=== PATIENT | female | born 1930 | race Caucasian/White ===

== ENCOUNTER 2017-05-30 11:21 | Inpatient (IN) | payer MEDICARE ==
[~2017-05-30] VITALS: Ht 154.9 cm; Wt 57.7 kg
[2017-05-30] VITALS (11 sets, daily range): BP systolic 128–153; BP diastolic 69–79
[~2017-05-30 11:21] MED LIST: ALBU18HF2 INH; ALBU2.5V7 NEB; ALLO100T PO; AMLO10TA PO; AZO1OS EACHEYE; CARV3.12 PO; FLUT1AER IH; FURO-149 PO; GABA-532 PO; PANT-47 PO; POTA10TA19 PO; XAL0.005OS EACHEYE; [UNRECOGNIZED DRUG - CODE] PO
[2017-05-30 12:17] LABS: BASOPHILS % (AUTO) 0.6 % (0-1); EOSINOPHILS # (AUTO) 0.1 X10'3 (0-0.9); EOSINOPHILS % (AUTO) 2.7 % (0-6); LYMPHOCYTES # (AUTO) 0.7 X10'3 (1.1-4.8); LYMPHOCYTES % (AUTO) 17.8 % (21-51); MEAN CORPUSCULAR HEMOGLOBIN 30.4 PG (27.0-31.0); MEAN CORPUSCULAR HGB CONC 29.8 % (33.0-36.5); MEAN PLATELET VOLUME 7.4 FL (7.4-10.4); MONOCYTES # (AUTO) 0.5 X10'3 (0-0.9); MONOCYTES % (AUTO) 12.4 % (2-12); NEUTROPHILS # (AUTO) 2.7 X10'3 (1.8-7.7); NEUTROPHILS % (AUTO) 66.5 % (42-75); PLATELET COUNT 123 X10'3 (140-440); RED BLOOD COUNT 2.14 X10'6 (4.20-5.60); RED CELL DISTRIBUTION WIDTH 18.8 % (11.5-14.5); WHITE BLOOD COUNT 4.1 X10'3 (4.5-11.0)
[2017-05-30 12:29] LABS: PARTIAL THROMBOPLASTIN TIME 21 SECONDS (22-32)
[2017-05-30 12:32] LABS: ALANINE AMINOTRANSFERASE 36 U/L (12-78); ALBUMIN 2.4 G/DL (3.4-5.0); ALKALINE PHOSPHATASE 57 IU/L (46-116); ANION GAP 8 (8-16); ASPARTATE AMINO TRANSFERASE 22 U/L (10-37); BILIRUBIN,TOTAL 0.5 MG/DL (0.1-1.0); BLOOD UREA NITROGEN 55 MG/DL (7-18); CALCIUM 8.1 MG/DL (8.5-10.1); CHLORIDE 110 MMOL/L (99-107); GLUCOSE 232 MG/DL (70-104); POTASSIUM 3.8 MMOL/L (3.5-5.1); SODIUM 144 MMOL/L (135-145); TOTAL CARBON DIOXIDE 25.9 MMOL/L (24-32); TOTAL PROTEIN 4.8 G/DL (6.4-8.2); eGFR 21 ML/MIN
[2017-05-30 12:34] LABS: HEMATOCRIT 21.9 % (35.0-45.0); HEMOGLOBIN 6.5 g/dl (12.0-16.0)
[2017-05-30] MEDS ORDERED: pantoprazole IV 80 MG in normal saline 100ml IV soln 100 ML IV ONE ×4 (12:45)
[2017-05-30] MEDS ORDERED: pantoprazole 40MG/NS 100ML BAG 100 ML IV ONE (12:50)
[2017-05-30] MEDS ORDERED: pantoprazole 40 MG vial IV ONE (12:50)
[2017-05-30] MEDS: pantoprazole 40 MG vial IV SCH ×3 (13:10→20:00)
[2017-05-30 13:22] LABS: OCCULT BLOOD STOOL POSITIVE (Neg)
[2017-05-30] MEDS ORDERED: non-formulary drug (Albuterol Sulfate (Ventolin Hfa) 2 PUFFS) INH SCH (14:10)
[2017-05-30] MEDS ORDERED: albuterol 2.5 MG/3 ML nebule NEB PRN (14:10)
[2017-05-30] MEDS ORDERED: magnesium Cl slow-release 64mg tablet PO PRN (14:15)
[2017-05-30] MEDS ORDERED: acetaminophen 325mg tablet PO PRN ×2 (14:15)
[2017-05-30] MEDS ORDERED: HYDROcodone/acetaminophen 5mg/325mg tablet PO PRN (14:15)
[2017-05-30] MEDS ORDERED: ondansetron/PF 4mg/2ml inj IV PRN (14:15)
[2017-05-30] MEDS ORDERED: mag hydrox/Alum hydrox/simeth 30ml oral suspension PO PRN (14:15)
[2017-05-30] MEDS ORDERED: magnesium 4gm in 100ml NS 100 ML IV PRN (14:15)
[2017-05-30] MEDS ORDERED: magnesium hydroxide 30ml (MOM) UD suspension PO PRN (14:15)
[2017-05-30] MEDS ORDERED: HYDROcodone/acetaminophen 10/325mg tab PO PRN (14:15)
[2017-05-30] MEDS ORDERED: potassium Cl 40MEQ/NS 500ml 500 ML IV PRN ×2 (14:15)
[2017-05-30] MEDS ORDERED: potassium Cl 20 mEq SR tablet PO PRN ×2 (14:15)
[2017-05-30] MEDS ORDERED: magnesium 2GM in 50ml NS 50 ML IV PRN (14:15)
[2017-05-30] MEDS ORDERED: fentaNYL/PF 50MCG/1 ML 2ML syringe IV PRN ×2 (16:00→16:15)
[2017-05-30] MEDS ORDERED: LIDOcaine Viscous 15ml cup PO ONE ×2 (16:00→16:15)
[2017-05-30] MEDS ORDERED: simethicone 40mg/0.6ml oral drops 30ml MC ONE ×2 (16:00→16:15)
[2017-05-30] MEDS ORDERED: MIDAZolam 1mg/ml 10ml vial IV PRN ×2 (16:00→16:15)
[2017-05-30] MEDS ORDERED: normal saline 1000ml 1,000 ML IV SCH ×2 (16:00→16:13)
[2017-05-30] MEDS ORDERED: MIDAZolam 1mg/ml 10ml vial ONE (16:15)
[2017-05-30] MEDS ORDERED: fentaNYL/PF 50MCG/1 ML 2ML syringe ONE (16:15)
[2017-05-30] MEDS ORDERED: LIDOcaine Viscous 15ml cup ONE (16:15)
[2017-05-30] MEDS: carVEDilol 3.125mg tablet PO SCH (20:00)
[2017-05-30] MEDS ORDERED: temazepam 15mg capsule PO PRN (21:00)
[2017-05-30] MEDS ORDERED: furosemide 20 MG/2 ML vial IV ONE (21:00)
[2017-05-30] MEDS ORDERED: latanoprost 0.005% 2.5ml ophthalmic drops EACHEYE SCH (21:00)
[2017-05-31] MEDS ORDERED: furosemide 20 MG/2 ML vial IV ONE (00:30)
[2017-05-31 01:07] VITALS: BP 154/78
[2017-05-31 01:22] VITALS: BP 149/75
[2017-05-31 02:22] VITALS: BP 154/73
[2017-05-31 03:22] VITALS: BP 150/88
[2017-05-31] MEDS ORDERED: PRED5TAB PO (06:43)
[2017-05-31 06:52] LABS: ALANINE AMINOTRANSFERASE 34 U/L (12-78); ALBUMIN 2.4 G/DL (3.4-5.0); ALKALINE PHOSPHATASE 52 IU/L (46-116); ANION GAP 11 (8-16); ASPARTATE AMINO TRANSFERASE 24 U/L (10-37); BILIRUBIN,TOTAL 2.1 MG/DL (0.1-1.0); BLOOD UREA NITROGEN 46 MG/DL (7-18); BUN/CREATININE RATIO 24.2 (6.6-38.0); CALCIUM 8.4 MG/DL (8.5-10.1); CHLORIDE 113 MMOL/L (99-107); GLUCOSE 88 MG/DL (70-104); MAGNESIUM 2.2 MG/DL (1.5-2.4); POTASSIUM 3.4 MMOL/L (3.5-5.1); SODIUM 149 MMOL/L (135-145); TOTAL CARBON DIOXIDE 25.3 MMOL/L (24-32); TOTAL PROTEIN 4.8 G/DL (6.4-8.2); eGFR 25 ML/MIN
[2017-05-31] MEDS ORDERED: pantoprazole 40mg Tablet.DR PO SCH (08:00)
[2017-05-31] MEDS ORDERED: allopurinol 100mg tablet PO SCH (08:00)
[2017-05-31] MEDS ORDERED: gabapentin 300mg capsule PO SCH (08:00)
[2017-05-31] MEDS ORDERED: amLODIPine 5mg tablet PO SCH (08:00)
[2017-05-31] MEDS ORDERED: K and/or MAG REPLACEMENT MC SCH (08:00)
[2017-05-31 08:20] LABS: BASOPHILS % (AUTO) 0.5 % (0-1); EOSINOPHILS # (AUTO) 0.2 X10'3 (0-0.9); EOSINOPHILS % (AUTO) 3.1 % (0-6); HEMOGLOBIN 10.1 g/dl (12.0-16.0); LYMPHOCYTES # (AUTO) 1.1 X10'3 (1.1-4.8); LYMPHOCYTES % (AUTO) 18.8 % (21-51); MEAN CORPUSCULAR HEMOGLOBIN 30.9 PG (27.0-31.0); MEAN CORPUSCULAR HGB CONC 33.6 % (33.0-36.5); MEAN CORPUSCULAR VOLUME 91.8 FL (78-98); MEAN PLATELET VOLUME 7.5 FL (7.4-10.4); MONOCYTES # (AUTO) 0.8 X10'3 (0-0.9); MONOCYTES % (AUTO) 13.9 % (2-12); NEUTROPHILS # (AUTO) 3.8 X10'3 (1.8-7.7); NEUTROPHILS % (AUTO) 63.7 % (42-75); PLATELET COUNT 90 X10'3 (140-440); RED BLOOD COUNT 3.26 X10'6 (4.20-5.60); RED CELL DISTRIBUTION WIDTH 20.2 % (11.5-14.5); WHITE BLOOD COUNT 5.9 X10'3 (4.5-11.0)
[2017-05-31] MEDS: carVEDilol 3.125mg tablet PO SCH (08:24)
[2017-05-31] MEDS: pantoprazole 40 MG vial IV SCH (08:25)
[2017-05-31 10:05] VITALS: BP 154/83
[2017-05-31 11:00] VITALS: BP 132/71
[2017-05-31] MEDS ORDERED: PANT-47 PO (11:02)
== END 2017-05-31 17:06 | disposition home or self-care (01) | DRG 393 ==
LOC: ER 11:22 → ED HOLD 13:51 → EDBEDREQ 14:44 → SUR 3N 18:30
PROVIDERS: ADMIT Internal Medicine; ATTEND Internal Medicine
PROC: 0W3P8ZZ Control Bleeding in Gastrointestinal Tract, Via Natural or Artificial Opening Endoscopic (ICD-10-PCS; principal; 2017-05-30)
PROC: 0DB68ZX Excision of Stomach, Via Natural or Artificial Opening Endoscopic, Diagnostic (ICD-10-PCS; 2017-05-30)
PROC: 30233N1 Transfusion of Nonautologous Red Blood Cells into Peripheral Vein, Percutaneous Approach (ICD-10-PCS; 2017-05-30)
PROC: 30233N1 Transfusion of Nonautologous Red Blood Cells into Peripheral Vein, Percutaneous Approach (ICD-10-PCS; 2017-05-31)
DX: K31.7 Polyp of stomach and duodenum (principal); K31.811 Angiodysplasia of stomach and duodenum with bleeding; E11.22 Type 2 diabetes mellitus with diabetic chronic kidney disease; D64.9 Anemia, unspecified; N18.3 Chronic kidney disease, stage 3 (moderate); J44.9 Chronic obstructive pulmonary disease, unspecified; I12.9 Hypertensive chronic kidney disease with stage 1 through stage 4 chronic kidney disease, or unspecified chronic kidney disease; I25.10 Atherosclerotic heart disease of native coronary artery without angina pectoris; K21.9 Gastro-esophageal reflux disease without esophagitis; M1A.9XX0 Chronic gout, unspecified, without tophus (tophi); B19.20 Unspecified viral hepatitis C without hepatic coma; T39.015A Adverse effect of aspirin, initial encounter; I25.2 Old myocardial infarction; Z88.1 Allergy status to other antibiotic agents; Z88.5 Allergy status to narcotic agent; Z91.048 Other nonmedicinal substance allergy status; Z90.49 Acquired absence of other specified parts of digestive tract; Z95.1 Presence of aortocoronary bypass graft; Z86.73 Personal history of transient ischemic attack (TIA), and cerebral infarction without residual deficits; Y92.89 Other specified places as the place of occurrence of the external cause
CPT/HCPCS: 36415; 43251; 71045; 80053; 82272; 83735; 85025; 85610; 85730; 86870; 86885; 86900; 86901; 86902; 86905; 86920; 86922; 87070; 88305; 94640; 94760; 96365; 96375; 96376; 97116; 97161; 99285; A4620; C9113; G0500; J1940; J2250; J3010; J7030; P9016

== ENCOUNTER 2017-11-12 01:29 | Inpatient (IN) | payer MEDICARE ==
[~2017-11-12] VITALS: Ht 162.6 cm; Wt 58.0 kg
[~2017-11-12 01:29] MED LIST changes: -GABA-532 PO; +NITR100C6 PO
[2017-11-12] MEDS ORDERED: acetaminophen 325mg tablet PO ONE (01:40)
[2017-11-12] MEDS ORDERED: normal saline 1000ML IV soln IV ONE (01:45)
[2017-11-12] MEDS ORDERED: CefTRIAXone 2gm/D5W 50ml 50 ML IV ONE (01:45)
[2017-11-12 02:04] LABS: BASOPHILS % (AUTO) 0.1 % (0-1); EOSINOPHILS % (AUTO) 0.2 % (0-6); HEMATOCRIT 27.2 % (35.0-45.0); HEMOGLOBIN 8.6 g/dl (12.0-16.0); LYMPHOCYTES # (AUTO) 0.8 X10'3 (1.1-4.8); LYMPHOCYTES % (AUTO) 8.4 % (21-51); MEAN CORPUSCULAR HGB CONC 31.5 % (33.0-36.5); MEAN CORPUSCULAR VOLUME 92.2 FL (78-98); MEAN PLATELET VOLUME 7.9 FL (7.4-10.4); MONOCYTES # (AUTO) 0.8 X10'3 (0-0.9); MONOCYTES % (AUTO) 8.9 % (2-12); NEUTROPHILS # (AUTO) 7.5 X10'3 (1.8-7.7); NEUTROPHILS % (AUTO) 82.4 % (42-75); PLATELET COUNT 120 X10'3 (140-440); RED BLOOD COUNT 2.95 X10'6 (4.20-5.60); RED CELL DISTRIBUTION WIDTH 19.3 % (11.5-14.5); WHITE BLOOD COUNT 9.1 X10'3 (4.5-11.0)
[2017-11-12 02:19] LABS: ALANINE AMINOTRANSFERASE 33 U/L (12-78); ALKALINE PHOSPHATASE 94 IU/L (46-116); ANION GAP 12 (8-16); ASPARTATE AMINO TRANSFERASE 22 U/L (10-37); BILIRUBIN,TOTAL 0.5 MG/DL (0.1-1.0); BLOOD UREA NITROGEN 70 MG/DL (7-18); BUN/CREATININE RATIO 26.1 (6.6-38.0); CALCIUM 8.6 MG/DL (8.5-10.1); CHLORIDE 107 MMOL/L (99-107); CREATININE 2.68 MG/DL (0.40-0.90); GLUCOSE 151 MG/DL (70-104); POTASSIUM 3.9 MMOL/L (3.5-5.1); SODIUM 142 MMOL/L (135-145); TOTAL CARBON DIOXIDE 22.8 MMOL/L (24-32); TOTAL PROTEIN 5.9 G/DL (6.4-8.2); eGFR 17 ML/MIN
[2017-11-12 03:05] LABS: CLARITY,URINE CLEAR (Clear); COLOR,URINE YELLOW (Yellow); GLUCOSE, URINE NEGATIVE (Neg); KETONES,URINE NEGATIVE (Neg); NITRITES, URINE POSITIVE (Neg); OCCULT BLOOD,URINE NEGATIVE (Neg); PROTEIN,URINE NEGATIVE (Neg); UA COLLECTION TYPE STRAIGHT CATH; UROBILINOGEN,URINE 0.2 E.U/dL (0.2-1.0)
[2017-11-12 03:06] LABS: LEUKOCYTE ESTERASE ,URINE TRACE (Neg)
[2017-11-12 03:14] LABS: RBC,URINE NONE SEEN /HPF (0-2)
[2017-11-12 03:15] LABS: BACTERIA,URINE 2+ /HPF (Neg); SQUAMOUS EPITHELIAL CELL,UR NONE SEEN /LPF (FEW)
[2017-11-12] MEDS ORDERED: azithromycin 250mg tablet PO ONE (04:20)
[2017-11-12] MEDS ORDERED: mag hydrox/Alum hydrox/simeth 30ml oral suspension PO PRN (04:30)
[2017-11-12] MEDS ORDERED: acetaminophen 325mg tablet PO PRN (04:30)
[2017-11-12] MEDS ORDERED: ondansetron/PF 4mg/2ml inj IV PRN (04:30)
[2017-11-12] MEDS ORDERED: normal saline 1000ml 1,000 ML IV SCH (04:30)
[2017-11-12] MEDS ORDERED: magnesium hydroxide 30ml (MOM) UD suspension PO PRN (04:30)
[2017-11-12] MEDS ORDERED: HYDROcodone/acetaminophen 5mg/325mg tablet PO PRN (04:30)
[2017-11-12] MEDS ORDERED: HYDROcodone/acetaminophen 10/325mg tab PO PRN (04:30)
[2017-11-12] MEDS ORDERED: TRUSOPT EACHEYE (04:31)
[2017-11-12] MEDS ORDERED: DOCU-28 PO (04:31)
[2017-11-12] MEDS ORDERED: POTA40LI16 PO (04:31)
[2017-11-12] MEDS ORDERED: PRE5T PO (04:31)
[2017-11-12] MEDS ORDERED: IPRA3AMP IH (04:31)
[2017-11-12] MEDS ORDERED: GABA-532 PO (04:31)
[2017-11-12] MEDS ORDERED: azithromycin/NS 500mg/250ml 250 ML IV SCH (04:47)
[2017-11-12 05:00] VITALS: BP 122/59
[2017-11-12] MEDS: albuterol 2.5 MG/3 ML nebule NEB SCH ×2 (07:00→11:00)
[2017-11-12] MEDS ORDERED: non-formulary drug (Fluticasone/Vilanterol (Breo Ellipta 100-25 Mcg INH) 1 PUFF) IH SCH (08:00)
[2017-11-12] MEDS ORDERED: [UNRECOGNIZED DRUG - MIXTURE] PO SCH (08:00)
[2017-11-12] MEDS: dorzolamide 2% ophthalmic drops 10ml EACHEYE SCH ×2 (08:00→19:44)
[2017-11-12] MEDS: carVEDilol 3.125mg tablet PO SCH ×2 (08:04→19:44)
[2017-11-12] MEDS: potassium Cl oral solution 20 MEQ/15 ML PO SCH (08:04)
[2017-11-12] MEDS: allopurinol 100mg tablet PO SCH (08:04)
[2017-11-12] MEDS: furosemide 40mg tablet PO SCH ×2 (08:04→19:44)
[2017-11-12] MEDS: gabapentin 300mg capsule PO SCH (08:04)
[2017-11-12] MEDS: amLODIPine 5mg tablet PO SCH (08:04)
[2017-11-12] MEDS: docusate sod 100mg capsule PO SCH ×2 (08:04→19:44)
[2017-11-12] MEDS: lactobacillus rhamnosus 10,000 MMU CELLS/CAPSULE PO SCH ×2 (08:04→19:44)
[2017-11-12 08:07] VITALS: BP 132/66
[2017-11-12 08:59] LABS: ALBUMIN 2.5 G/DL (3.4-5.0); ANION GAP 13 (8-16); BLOOD UREA NITROGEN 60 MG/DL (7-18); BUN/CREATININE RATIO 23.1 (6.6-38.0); CALCIUM 7.8 MG/DL (8.5-10.1); CHLORIDE 108 MMOL/L (99-107); GLUCOSE 189 MG/DL (70-104); POTASSIUM 3.7 MMOL/L (3.5-5.1); SODIUM 142 MMOL/L (135-145); TOTAL CARBON DIOXIDE 20.9 MMOL/L (24-32); eGFR 17 ML/MIN
[2017-11-12] MEDS ORDERED: BUDESONIDE 0.25 MG/2 ML AMPUL.NEB IH SCH (09:00)
[2017-11-12 09:12] LABS: BASOPHILS % (AUTO) 0.2 % (0-1); EOSINOPHILS % (AUTO) 0.2 % (0-6); HEMATOCRIT 23.9 % (35.0-45.0); HEMOGLOBIN 7.6 g/dl (12.0-16.0); LYMPHOCYTES # (AUTO) 0.5 X10'3 (1.1-4.8); LYMPHOCYTES % (AUTO) 4.9 % (21-51); MEAN CORPUSCULAR HEMOGLOBIN 29.1 PG (27.0-31.0); MEAN CORPUSCULAR HGB CONC 31.9 % (33.0-36.5); MEAN CORPUSCULAR VOLUME 91.3 FL (78-98); MEAN PLATELET VOLUME 8.4 FL (7.4-10.4); MONOCYTES # (AUTO) 1.1 X10'3 (0-0.9); NEUTROPHILS # (AUTO) 9.5 X10'3 (1.8-7.7); NEUTROPHILS % (AUTO) 84.7 % (42-75); PLATELET COUNT 103 X10'3 (140-440); RED BLOOD COUNT 2.62 X10'6 (4.20-5.60); RED CELL DISTRIBUTION WIDTH 19.4 % (11.5-14.5); WHITE BLOOD COUNT 11.3 X10'3 (4.5-11.0)
[2017-11-12] MEDS: ipratropium/albuterol 3ml nebule IH SCH ×4 (09:40→23:26)
[2017-11-12 10:00] VITALS: BP 103/64
[2017-11-12] MEDS ORDERED: levoFLOXACIN-Levaquin 750MG/D5 150 ML IV SCH (16:05)
[2017-11-12 16:23] LABS: BASOPHILS % (AUTO) 0 % (0-1); EOSINOPHILS # (AUTO) 0.3 X10'3 (0-0.9); EOSINOPHILS % (AUTO) 2.4 % (0-6); HEMATOCRIT 24.3 % (35.0-45.0); HEMOGLOBIN 7.6 g/dl (12.0-16.0); LYMPHOCYTES # (AUTO) 0.8 X10'3 (1.1-4.8); LYMPHOCYTES % (AUTO) 6.7 % (21-51); MEAN CORPUSCULAR HEMOGLOBIN 28.9 PG (27.0-31.0); MEAN CORPUSCULAR HGB CONC 31.4 % (33.0-36.5); MEAN CORPUSCULAR VOLUME 92.1 FL (78-98); MEAN PLATELET VOLUME 7.9 FL (7.4-10.4); MONOCYTES % (AUTO) 8.7 % (2-12); NEUTROPHILS # (AUTO) 9.7 X10'3 (1.8-7.7); NEUTROPHILS % (AUTO) 82.2 % (42-75); PLATELET COUNT 95 X10'3 (140-440); RED BLOOD COUNT 2.64 X10'6 (4.20-5.60); RED CELL DISTRIBUTION WIDTH 19.5 % (11.5-14.5); WHITE BLOOD COUNT 11.8 X10'3 (4.5-11.0)
[2017-11-12 18:00] VITALS: BP 101/59
[2017-11-12] MEDS: pantoprazole 40 MG vial IV SCH (18:01)
[2017-11-12 19:37] VITALS: BP 134/61
[2017-11-12] MEDS: latanoprost 0.005% 2.5ml ophthalmic drops EACHEYE SCH (19:42)
[2017-11-12] MEDS ORDERED: CefTRIAXone/D5W-Rocephin 1gm 50 ML IV SCH (21:00)
[2017-11-12 22:07] LABS: BASOPHILS % (AUTO) 0.1 % (0-1); EOSINOPHILS # (AUTO) 0.3 X10'3 (0-0.9); EOSINOPHILS % (AUTO) 2.8 % (0-6); HEMATOCRIT 23.7 % (35.0-45.0); HEMOGLOBIN 7.5 g/dl (12.0-16.0); LYMPHOCYTES # (AUTO) 0.8 X10'3 (1.1-4.8); LYMPHOCYTES % (AUTO) 7.1 % (21-51); MEAN CORPUSCULAR HEMOGLOBIN 28.9 PG (27.0-31.0); MEAN CORPUSCULAR HGB CONC 31.6 % (33.0-36.5); MEAN CORPUSCULAR VOLUME 91.5 FL (78-98); MEAN PLATELET VOLUME 8.3 FL (7.4-10.4); MONOCYTES # (AUTO) 1.1 X10'3 (0-0.9); NEUTROPHILS # (AUTO) 8.9 X10'3 (1.8-7.7); PLATELET COUNT 90 X10'3 (140-440); RED BLOOD COUNT 2.59 X10'6 (4.20-5.60); RED CELL DISTRIBUTION WIDTH 19.8 % (11.5-14.5); WHITE BLOOD COUNT 11.1 X10'3 (4.5-11.0)
[2017-11-12 23:00] VITALS: BP 140/68
[2017-11-12] MEDS: acetaminophen 325mg tablet PO PRN (23:42)
[2017-11-12] MEDS: metroNIDAZOLE-Flagyl 500mg/NS 100 ML IV SCH (23:43)
[2017-11-13] VITALS (9 sets, daily range): BP systolic 96–143; BP diastolic 47–78
[2017-11-13 02:34] LABS: OCCULT BLOOD STOOL POSITIVE (Neg)
[2017-11-13] MEDS: ipratropium/albuterol 3ml nebule IH SCH ×6 (02:48→23:05)
[2017-11-13 06:36] LABS: ALBUMIN 2.3 G/DL (3.4-5.0); ANION GAP 11 (8-16); BLOOD UREA NITROGEN 53 MG/DL (7-18); BUN/CREATININE RATIO 19.9 (6.6-38.0); CHLORIDE 105 MMOL/L (99-107); CREATININE 2.67 MG/DL (0.40-0.90); GLUCOSE 95 MG/DL (70-104); POTASSIUM 3.1 MMOL/L (3.5-5.1); SODIUM 138 MMOL/L (135-145); TOTAL CARBON DIOXIDE 22.3 MMOL/L (24-32); eGFR 17 ML/MIN
[2017-11-13 06:47] LABS: BASOPHILS % (AUTO) 0.2 % (0-1); EOSINOPHILS # (AUTO) 0.4 X10'3 (0-0.9); EOSINOPHILS % (AUTO) 3.8 % (0-6); HEMATOCRIT 23.2 % (35.0-45.0); HEMOGLOBIN 7.3 g/dl (12.0-16.0); LYMPHOCYTES # (AUTO) 0.9 X10'3 (1.1-4.8); LYMPHOCYTES % (AUTO) 8.9 % (21-51); MEAN CORPUSCULAR HEMOGLOBIN 28.9 PG (27.0-31.0); MEAN CORPUSCULAR HGB CONC 31.5 % (33.0-36.5); MEAN CORPUSCULAR VOLUME 91.6 FL (78-98); MEAN PLATELET VOLUME 8.4 FL (7.4-10.4); MONOCYTES # (AUTO) 1.1 X10'3 (0-0.9); MONOCYTES % (AUTO) 11.6 % (2-12); NEUTROPHILS # (AUTO) 7.3 X10'3 (1.8-7.7); NEUTROPHILS % (AUTO) 75.5 % (42-75); PLATELET COUNT 84 X10'3 (140-440); RED BLOOD COUNT 2.53 X10'6 (4.20-5.60); WHITE BLOOD COUNT 9.7 X10'3 (4.5-11.0)
[2017-11-13] MEDS: metroNIDAZOLE-Flagyl 500mg/NS 100 ML IV SCH ×2 (08:53→16:57)
[2017-11-13] MEDS: pantoprazole 40 MG vial IV SCH ×2 (08:53→20:14)
[2017-11-13] MEDS: docusate sod 100mg capsule PO SCH ×2 (08:53→20:14)
[2017-11-13] MEDS: carVEDilol 3.125mg tablet PO SCH ×2 (08:53→20:14)
[2017-11-13] MEDS: lactobacillus rhamnosus 10,000 MMU CELLS/CAPSULE PO SCH ×2 (08:53→20:14)
[2017-11-13] MEDS: furosemide 40mg tablet PO SCH ×2 (08:53→20:14)
[2017-11-13] MEDS: potassium Cl oral solution 20 MEQ/15 ML PO SCH (08:54)
[2017-11-13] MEDS: amLODIPine 5mg tablet PO SCH (08:54)
[2017-11-13] MEDS: allopurinol 100mg tablet PO SCH (08:54)
[2017-11-13] MEDS: dorzolamide 2% ophthalmic drops 10ml EACHEYE SCH ×2 (08:57→20:16)
[2017-11-13] MEDS: gabapentin 300mg capsule PO SCH (10:07)
[2017-11-13] MEDS ORDERED: potassium Cl 40MEQ/NS 500ml 500 ML IV PRN ×2 (11:55)
[2017-11-13] MEDS ORDERED: potassium Cl 20 mEq SR tablet PO PRN (11:55)
[2017-11-13] MEDS ORDERED: LIDOcaine Viscous 15ml cup ONE (12:32)
[2017-11-13] MEDS ORDERED: fentaNYL/PF 50MCG/1 ML 2ML syringe ONE (12:32)
[2017-11-13] MEDS ORDERED: MIDAZolam 5mg/5ml vial ONE (12:32)
[2017-11-13] MEDS: acetaminophen 325mg tablet PO PRN (16:57)
[2017-11-13] MEDS: potassium Cl 20 mEq SR tablet PO PRN ×2 (16:58→22:30)
[2017-11-13] MEDS: latanoprost 0.005% 2.5ml ophthalmic drops EACHEYE SCH (20:15)
[2017-11-14] MEDS: metroNIDAZOLE-Flagyl 500mg/NS 100 ML IV SCH ×2 (00:11→07:47)
[2017-11-14] MEDS: ipratropium/albuterol 3ml nebule IH SCH ×6 (03:06→23:43)
[2017-11-14 06:00] VITALS: BP 124/53
[2017-11-14 06:12] LABS: BASOPHILS % (AUTO) 0 % (0-1); EOSINOPHILS # (AUTO) 0.5 X10'3 (0-0.9); HEMATOCRIT 24.6 % (35.0-45.0); HEMOGLOBIN 7.8 g/dl (12.0-16.0); LYMPHOCYTES # (AUTO) 1.4 X10'3 (1.1-4.8); MEAN CORPUSCULAR HEMOGLOBIN 28.5 PG (27.0-31.0); MEAN CORPUSCULAR HGB CONC 31.7 % (33.0-36.5); MEAN CORPUSCULAR VOLUME 89.9 FL (78-98); MEAN PLATELET VOLUME 8.1 FL (7.4-10.4); MONOCYTES # (AUTO) 0.6 X10'3 (0-0.9); MONOCYTES % (AUTO) 8.1 % (2-12); NEUTROPHILS # (AUTO) 4.9 X10'3 (1.8-7.7); NEUTROPHILS % (AUTO) 65.9 % (42-75); PLATELET COUNT 103 X10'3 (140-440); RED BLOOD COUNT 2.74 X10'6 (4.20-5.60); RED CELL DISTRIBUTION WIDTH 18.5 % (11.5-14.5); WHITE BLOOD COUNT 7.4 X10'3 (4.5-11.0)
[2017-11-14 06:19] LABS: ALBUMIN 2.3 G/DL (3.4-5.0); ANION GAP 9 (8-16); BLOOD UREA NITROGEN 50 MG/DL (7-18); BUN/CREATININE RATIO 20.2 (6.6-38.0); CALCIUM 7.9 MG/DL (8.5-10.1); CHLORIDE 106 MMOL/L (99-107); CREATININE 2.48 MG/DL (0.40-0.90); GLUCOSE 98 MG/DL (70-104); POTASSIUM 3.3 MMOL/L (3.5-5.1); SODIUM 137 MMOL/L (135-145); TOTAL CARBON DIOXIDE 21.9 MMOL/L (24-32); eGFR 18 ML/MIN
[2017-11-14] MEDS ORDERED: pantoprazole 40mg Tablet.DR PO SCH (07:30)
[2017-11-14] MEDS: dorzolamide 2% ophthalmic drops 10ml EACHEYE SCH ×2 (07:47→20:20)
[2017-11-14] MEDS: pantoprazole 40 MG vial IV SCH ×2 (07:47→20:20)
[2017-11-14] MEDS: amLODIPine 5mg tablet PO SCH (07:48)
[2017-11-14] MEDS: gabapentin 300mg capsule PO SCH (07:48)
[2017-11-14] MEDS: carVEDilol 3.125mg tablet PO SCH ×2 (07:48→20:20)
[2017-11-14] MEDS: allopurinol 100mg tablet PO SCH (07:48)
[2017-11-14] MEDS: lactobacillus rhamnosus 10,000 MMU CELLS/CAPSULE PO SCH ×2 (07:48→20:20)
[2017-11-14] MEDS: furosemide 40mg tablet PO SCH (07:48)
[2017-11-14] MEDS: docusate sod 100mg capsule PO SCH ×2 (07:48→20:20)
[2017-11-14] MEDS: potassium Cl oral solution 20 MEQ/15 ML PO SCH (07:49)
[2017-11-14 10:00] VITALS: BP 78/51
[2017-11-14] MEDS ORDERED: levoFLOXACIN 500mg tablet PO SCH (11:00)
[2017-11-14] MEDS: potassium Cl 20 mEq SR tablet PO PRN (11:43)
[2017-11-14] MEDS ORDERED: potassium Cl oral solution 20 MEQ/15 ML PO PRN ×2 (11:51→11:52)
[2017-11-14 12:00] VITALS: BP 123/55
[2017-11-14 18:00] VITALS: BP 145/70
[2017-11-14 20:18] VITALS: BP 145/59
[2017-11-14] MEDS: latanoprost 0.005% 2.5ml ophthalmic drops EACHEYE SCH (20:19)
[2017-11-14 22:00] VITALS: BP 131/51
[2017-11-14] MEDS: acetaminophen 325mg tablet PO PRN (23:44)
[2017-11-15] MEDS: ipratropium/albuterol 3ml nebule IH SCH ×3 (02:59→11:19)
[2017-11-15 05:58] LABS: BASOPHILS % (AUTO) 0.4 % (0-1); EOSINOPHILS # (AUTO) 0.3 X10'3 (0-0.9); EOSINOPHILS % (AUTO) 5.3 % (0-6); HEMATOCRIT 22.4 % (35.0-45.0); HEMOGLOBIN 7.1 g/dl (12.0-16.0); LYMPHOCYTES # (AUTO) 0.7 X10'3 (1.1-4.8); MEAN CORPUSCULAR HEMOGLOBIN 28.6 PG (27.0-31.0); MEAN CORPUSCULAR HGB CONC 31.8 % (33.0-36.5); MEAN CORPUSCULAR VOLUME 89.9 FL (78-98); MONOCYTES # (AUTO) 0.7 X10'3 (0-0.9); MONOCYTES % (AUTO) 14.1 % (2-12); NEUTROPHILS # (AUTO) 3.5 X10'3 (1.8-7.7); NEUTROPHILS % (AUTO) 67.2 % (42-75); PLATELET COUNT 99 X10'3 (140-440); RED BLOOD COUNT 2.49 X10'6 (4.20-5.60); RED CELL DISTRIBUTION WIDTH 18.1 % (11.5-14.5); WHITE BLOOD COUNT 5.2 X10'3 (4.5-11.0)
[2017-11-15 06:00] VITALS: BP 138/66
[2017-11-15 06:14] LABS: ALBUMIN 2.1 G/DL (3.4-5.0); ANION GAP 11 (8-16); BLOOD UREA NITROGEN 46 MG/DL (7-18); BUN/CREATININE RATIO 16.8 (6.6-38.0); CALCIUM 8.2 MG/DL (8.5-10.1); CHLORIDE 107 MMOL/L (99-107); CREATININE 2.74 MG/DL (0.40-0.90); GLUCOSE 94 MG/DL (70-104); POTASSIUM 3.6 MMOL/L (3.5-5.1); SODIUM 139 MMOL/L (135-145); TOTAL CARBON DIOXIDE 20.9 MMOL/L (24-32); eGFR 16 ML/MIN
[2017-11-15] MEDS: potassium Cl oral solution 20 MEQ/15 ML PO SCH (07:24)
[2017-11-15] MEDS: pantoprazole 40 MG vial IV SCH (07:39)
[2017-11-15] MEDS: amLODIPine 5mg tablet PO SCH (07:39)
[2017-11-15] MEDS: allopurinol 100mg tablet PO SCH (07:40)
[2017-11-15] MEDS: lactobacillus rhamnosus 10,000 MMU CELLS/CAPSULE PO SCH (07:40)
[2017-11-15] MEDS: docusate sod 100mg capsule PO SCH (07:40)
[2017-11-15] MEDS: dorzolamide 2% ophthalmic drops 10ml EACHEYE SCH (07:40)
[2017-11-15] MEDS: gabapentin 300mg capsule PO SCH (07:40)
[2017-11-15] MEDS: carVEDilol 3.125mg tablet PO SCH (07:40)
[2017-11-15] MEDS ORDERED: furosemide 40mg tablet PO SCH (08:00)
[2017-11-15] MEDS ORDERED: FURO20TA4 PO (09:39)
[2017-11-15] MEDS ORDERED: PANT-47 PO (09:39)
[2017-11-15] MEDS ORDERED: FERR324T4 PO (09:39)
[2017-11-15 10:00] VITALS: BP 106/56
== END 2017-11-15 12:10 | disposition home health service (06) | DRG 871 ==
LOC: ER 01:30 → ED HOLD 04:30 → ORTHO 4S 06:18
PROVIDERS: ADMIT Hospitalist; ATTEND Internal Medicine
PROC: 0D568ZZ Destruction of Stomach, Via Natural or Artificial Opening Endoscopic (ICD-10-PCS; principal; 2017-11-13)
PROC: 0DJ08ZZ Inspection of Upper Intestinal Tract, Via Natural or Artificial Opening Endoscopic (ICD-10-PCS; 2017-11-13)
DX: A41.9 Sepsis, unspecified organism (principal); G93.41 Metabolic encephalopathy; K31.811 Angiodysplasia of stomach and duodenum with bleeding; J18.9 Pneumonia, unspecified organism; N39.0 Urinary tract infection, site not specified; J44.0 Chronic obstructive pulmonary disease with (acute) lower respiratory infection; N17.9 Acute kidney failure, unspecified; I25.10 Atherosclerotic heart disease of native coronary artery without angina pectoris; I12.9 Hypertensive chronic kidney disease with stage 1 through stage 4 chronic kidney disease, or unspecified chronic kidney disease; E11.65 Type 2 diabetes mellitus with hyperglycemia; E11.22 Type 2 diabetes mellitus with diabetic chronic kidney disease; K21.9 Gastro-esophageal reflux disease without esophagitis; E87.6 Hypokalemia; D50.0 Iron deficiency anemia secondary to blood loss (chronic); M10.9 Gout, unspecified; N18.3 Chronic kidney disease, stage 3 (moderate); I25.2 Old myocardial infarction; Z95.1 Presence of aortocoronary bypass graft; Z90.49 Acquired absence of other specified parts of digestive tract; Z88.6 Allergy status to analgesic agent; Z88.1 Allergy status to other antibiotic agents; Z91.048 Other nonmedicinal substance allergy status; Z79.899 Other long term (current) drug therapy; Z86.73 Personal history of transient ischemic attack (TIA), and cerebral infarction without residual deficits
CPT/HCPCS: 36415; 70450; 71045; 71250; 80048; 80053; 81001; 82272; 82948; 83605; 84145; 85025; 87040; 87070; 87077; 87088; 87186; 92616; 94640; 94667; 94668; 94760; 96365; 97110; 97116; 97161; 99285; A4620; A6250; A6258; C9113; G0500; J0456; J0696; J1956; J2250; J3010; J3490; J7030

== ENCOUNTER 2018-02-11 01:20 | Inpatient (IN) | payer MEDICARE ==
[~2018-02-11] VITALS: Ht 157.5 cm; Wt 56.4 kg
[2018-02-11] VITALS (7 sets, daily range): BP systolic 107–140; BP diastolic 44–53
[~2018-02-11 01:20] MED LIST changes: -ALBU18HF2 INH; -ALBU2.5V7 NEB; -AZO1OS EACHEYE; +DOCU-28 PO; +FERR324T4 PO; -FURO-149 PO; +FURO20TA4 PO; +GABA-532 PO; +IPRA3AMP31 IH; -NITR100C6 PO; -POTA10TA19 PO; +POTA40LI16 PO; +TRUSOPT EACHEYE; -[UNRECOGNIZED DRUG - CODE] PO
[2018-02-11] MEDS ORDERED: FLUT1BLS3 (01:40)
[2018-02-11] MEDS ORDERED: FLUT16SP10 (01:40)
[2018-02-11] MEDS ORDERED: FURO-150 PO (01:43)
[2018-02-11] MEDS ORDERED: PANT40SU2 PO (01:44)
[2018-02-11 02:12] LABS: PARTIAL THROMBOPLASTIN TIME 25 SECONDS (22-32); PROTHROMBIN TIME 10.5 SECONDS (9.0-12.0)
[2018-02-11 02:19] LABS: BASOPHILS # (AUTO) 0.1 X10'3 (0-0.2); BASOPHILS % (AUTO) 1.7 % (0-1); EOSINOPHILS # (AUTO) 0.3 X10'3 (0-0.9); EOSINOPHILS % (AUTO) 9.5 % (0-6); LYMPHOCYTES # (AUTO) 0.7 X10'3 (1.1-4.8); LYMPHOCYTES % (AUTO) 19.9 % (21-51); MEAN CORPUSCULAR HEMOGLOBIN 26.3 PG (27.0-31.0); MEAN CORPUSCULAR HGB CONC 30.1 % (33.0-36.5); MEAN CORPUSCULAR VOLUME 87.3 FL (78-98); MEAN PLATELET VOLUME 8.1 FL (7.4-10.4); MONOCYTES # (AUTO) 0.5 X10'3 (0-0.9); MONOCYTES % (AUTO) 15.6 % (2-12); NEUTROPHILS # (AUTO) 1.8 X10'3 (1.8-7.7); NEUTROPHILS % (AUTO) 53.3 % (42-75); PLATELET COUNT 104 X10'3 (140-440); RED BLOOD COUNT 1.95 X10'6 (4.20-5.60); RED CELL DISTRIBUTION WIDTH 21.8 % (11.5-14.5); WHITE BLOOD COUNT 3.4 X10'3 (4.5-11.0)
[2018-02-11 02:23] LABS: ALANINE AMINOTRANSFERASE 52 U/L (12-78); ALBUMIN 2.7 G/DL (3.4-5.0); ALBUMIN/GLOBULIN RATIO 1.1 (1.1-1.5); ALKALINE PHOSPHATASE 75 IU/L (46-116); ANION GAP 12 (8-16); ASPARTATE AMINO TRANSFERASE 57 U/L (10-37); BILIRUBIN,TOTAL 0.5 MG/DL (0.1-1.0); BLOOD UREA NITROGEN 53 MG/DL (7-18); BUN/CREATININE RATIO 22.7 (6.6-38.0); CALCIUM 8.3 MG/DL (8.5-10.1); CHLORIDE 105 MMOL/L (99-107); CREATININE 2.33 MG/DL (0.40-0.90); ETHANOL < 0.010 GM/DL (0.0-0.010); GLUCOSE 113 MG/DL (70-104); MAGNESIUM 2.3 MG/DL (1.5-2.4); PHOSPHORUS 3.9 MG/DL (2.3-4.5); POTASSIUM 3.8 MMOL/L (3.5-5.1); SODIUM 139 MMOL/L (135-145); TOTAL CARBON DIOXIDE 22.1 MMOL/L (24-32); TOTAL PROTEIN 5.2 G/DL (6.4-8.2); eGFR 20 ML/MIN
[2018-02-11 02:27] LABS: HEMOGLOBIN 5.1 g/dl (12.0-16.0)
[2018-02-11] MEDS ORDERED: pantoprazole 40 MG vial IV ONE (02:35)
[2018-02-11 02:43] LABS: CLARITY,URINE CLEAR (Clear); COLOR,URINE YELLOW (Yellow); GLUCOSE, URINE NEGATIVE (Neg); KETONES,URINE NEGATIVE (Neg); LEUKOCYTE ESTERASE ,URINE NEGATIVE (Neg); NITRITES, URINE NEGATIVE (Neg); OCCULT BLOOD,URINE NEGATIVE (Neg); PH,URINE 5.5 (4.8-8.0); PROTEIN,URINE NEGATIVE (Neg); UROBILINOGEN,URINE 0.2 E.U/dL (0.2-1.0)
[2018-02-11 02:44] LABS: UA COLLECTION TYPE STRAIGHT CATH
[2018-02-11] MEDS ORDERED: acetaminophen 325mg tablet PO ONE (03:00)
[2018-02-11] MEDS: pantoprazole 40MG/NS 100ML BAG 100 ML IV SCH ×5 (03:29→20:33)
[2018-02-11 03:31] LABS: TOTAL CELLS COUNTED 100
[2018-02-11 03:33] LABS: MICROCYTOSIS 2+; PLATELET ESTIMATE DECREASED; POIKILOCYTOSIS FEW
[2018-02-11 03:34] LABS: HYPOCHROMASIA 2+; POLYCHROMASIA 1+
[2018-02-11 03:35] LABS: ELLIPTOCYTES FEW; LARGE PLATELETS FEW; STOMATOCYTES 1+; TEAR DROP CELLS FEW
[2018-02-11] MEDS ORDERED: ondansetron/PF 4mg/2ml inj IV PRN (04:55)
[2018-02-11] MEDS ORDERED: magnesium hydroxide 30ml (MOM) UD suspension PO PRN (04:55)
[2018-02-11] MEDS ORDERED: mag hydrox/Alum hydrox/simeth 30ml oral suspension PO PRN (04:55)
[2018-02-11] MEDS ORDERED: pantoprazole 40MG/NS 100ML BAG 100 ML IV SCH (06:00)
[2018-02-11] MEDS: normal saline 1000ml 1,000 ML IV SCH (06:16)
[2018-02-11] MEDS: ipratropium/albuterol 3ml nebule IH SCH ×3 (08:00→19:33)
[2018-02-11] MEDS: potassium Cl oral solution 20 MEQ/15 ML PO SCH (09:46)
[2018-02-11] MEDS: gabapentin 300mg capsule PO SCH (09:46)
[2018-02-11] MEDS: furosemide 20MG tablet PO SCH (09:46)
[2018-02-11] MEDS: pantoprazole 40mg Tablet.DR PO SCH (09:46)
[2018-02-11] MEDS: allopurinol 100mg tablet PO SCH (09:46)
[2018-02-11] MEDS: carVEDilol 3.125mg tablet PO SCH ×2 (09:47→20:29)
[2018-02-11] MEDS: dorzolamide 2% ophthalmic drops 10ml EACHEYE SCH ×2 (09:47→20:29)
[2018-02-11] MEDS: amLODIPine 5mg tablet PO SCH (09:47)
[2018-02-11] MEDS: acetaminophen 325mg tablet PO PRN ×2 (12:41→21:27)
[2018-02-11] MEDS ORDERED: furosemide 40mg/4ml inj IV ONE (18:15)
[2018-02-11] MEDS: latanoprost 0.005% 2.5ml ophthalmic drops EACHEYE SCH (20:29)
[2018-02-12] VITALS (9 sets, daily range): BP systolic 117–146; BP diastolic 55–71
[2018-02-12] MEDS: pantoprazole 40MG/NS 100ML BAG 100 ML IV SCH ×5 (01:54→21:37)
[2018-02-12 06:51] LABS: BASOPHILS % (AUTO) 1.2 % (0-1); EOSINOPHILS # (AUTO) 0.3 X10'3 (0-0.9); EOSINOPHILS % (AUTO) 7.1 % (0-6); HEMATOCRIT 25.6 % (35.0-45.0); HEMOGLOBIN 8.3 g/dl (12.0-16.0); LYMPHOCYTES # (AUTO) 0.6 X10'3 (1.1-4.8); LYMPHOCYTES % (AUTO) 17.2 % (21-51); MEAN CORPUSCULAR HEMOGLOBIN 29.1 PG (27.0-31.0); MEAN CORPUSCULAR HGB CONC 32.4 % (33.0-36.5); MEAN CORPUSCULAR VOLUME 89.8 FL (78-98); MEAN PLATELET VOLUME 7.8 FL (7.4-10.4); MONOCYTES # (AUTO) 0.6 X10'3 (0-0.9); MONOCYTES % (AUTO) 15.2 % (2-12); NEUTROPHILS # (AUTO) 2.2 X10'3 (1.8-7.7); NEUTROPHILS % (AUTO) 59.3 % (42-75); PLATELET COUNT 93 X10'3 (140-440); RED BLOOD COUNT 2.84 X10'6 (4.20-5.60); RED CELL DISTRIBUTION WIDTH 17.6 % (11.5-14.5); WHITE BLOOD COUNT 3.8 X10'3 (4.5-11.0)
[2018-02-12 07:02] LABS: ALANINE AMINOTRANSFERASE 47 U/L (12-78); ALBUMIN 2.4 G/DL (3.4-5.0); ALBUMIN/GLOBULIN RATIO 1.1 (1.1-1.5); ALKALINE PHOSPHATASE 71 IU/L (46-116); ANION GAP 13 (8-16); ASPARTATE AMINO TRANSFERASE 57 U/L (10-37); BILIRUBIN,TOTAL 1.8 MG/DL (0.1-1.0); BLOOD UREA NITROGEN 52 MG/DL (7-18); BUN/CREATININE RATIO 22.4 (6.6-38.0); CALCIUM 8.3 MG/DL (8.5-10.1); CHLORIDE 108 MMOL/L (99-107); CREATININE 2.32 MG/DL (0.40-0.90); GLUCOSE 98 MG/DL (70-104); POTASSIUM 3.3 MMOL/L (3.5-5.1); SODIUM 142 MMOL/L (135-145); TOTAL PROTEIN 4.6 G/DL (6.4-8.2); eGFR 20 ML/MIN
[2018-02-12 07:42] LABS: ANISOCYTOSIS 2+; PLATELET ESTIMATE DECREASED; POIKILOCYTOSIS 1+; POLYCHROMASIA FEW; TEAR DROP CELLS 1+
[2018-02-12] MEDS: ipratropium/albuterol 3ml nebule IH SCH ×3 (08:19→21:17)
[2018-02-12] MEDS: gabapentin 300mg capsule PO SCH (08:27)
[2018-02-12] MEDS: amLODIPine 5mg tablet PO SCH (08:27)
[2018-02-12] MEDS: potassium Cl oral solution 20 MEQ/15 ML PO SCH (08:27)
[2018-02-12] MEDS: carVEDilol 3.125mg tablet PO SCH ×2 (08:27→20:44)
[2018-02-12] MEDS: pantoprazole 40mg Tablet.DR PO SCH (08:27)
[2018-02-12] MEDS: allopurinol 100mg tablet PO SCH (08:27)
[2018-02-12] MEDS: furosemide 20MG tablet PO SCH (08:27)
[2018-02-12] MEDS: dorzolamide 2% ophthalmic drops 10ml EACHEYE SCH ×2 (08:28→20:44)
[2018-02-12] MEDS: acetaminophen 325mg tablet PO PRN (08:45)
[2018-02-12] MEDS: latanoprost 0.005% 2.5ml ophthalmic drops EACHEYE SCH (20:44)
[2018-02-13] MEDS: pantoprazole 40MG/NS 100ML BAG 100 ML IV SCH ×3 (02:09→09:26)
[2018-02-13] MEDS: normal saline 1000ml 1,000 ML IV SCH (02:54)
[2018-02-13 05:48] LABS: ALANINE AMINOTRANSFERASE 40 U/L (12-78); ALBUMIN 2.3 G/DL (3.4-5.0); ALKALINE PHOSPHATASE 69 IU/L (46-116); ANION GAP 12 (8-16); ASPARTATE AMINO TRANSFERASE 49 U/L (10-37); BILIRUBIN,TOTAL 0.9 MG/DL (0.1-1.0); BLOOD UREA NITROGEN 51 MG/DL (7-18); BUN/CREATININE RATIO 21.3 (6.6-38.0); CALCIUM 8.1 MG/DL (8.5-10.1); CHLORIDE 109 MMOL/L (99-107); CREATININE 2.39 MG/DL (0.40-0.90); GLUCOSE 99 MG/DL (70-104); POTASSIUM 3.2 MMOL/L (3.5-5.1); SODIUM 143 MMOL/L (135-145); TOTAL CARBON DIOXIDE 22.1 MMOL/L (24-32); TOTAL PROTEIN 4.5 G/DL (6.4-8.2); eGFR 19 ML/MIN
[2018-02-13 06:00] VITALS: BP 159/61
[2018-02-13 06:14] LABS: HEMOGLOBIN 8.6 g/dl (12.0-16.0); RED BLOOD COUNT 2.85 X10'6 (4.20-5.60); WHITE BLOOD COUNT 3.8 X10'3 (4.5-11.0)
[2018-02-13 06:15] LABS: MEAN CORPUSCULAR HGB CONC 32.9 % (33.0-36.5); MEAN CORPUSCULAR VOLUME 91.1 FL (78-98); RED CELL DISTRIBUTION WIDTH 17.5 % (11.5-14.5)
[2018-02-13 06:16] LABS: BASOPHILS % (AUTO) 0.9 % (0-1); EOSINOPHILS # (AUTO) 0.3 X10'3 (0-0.9); EOSINOPHILS % (AUTO) 8.4 % (0-6); LYMPHOCYTES # (AUTO) 0.6 X10'3 (1.1-4.8); LYMPHOCYTES % (AUTO) 15.1 % (21-51); MEAN PLATELET VOLUME 8.2 FL (7.4-10.4); MONOCYTES # (AUTO) 0.6 X10'3 (0-0.9); MONOCYTES % (AUTO) 15.1 % (2-12); NEUTROPHILS # (AUTO) 2.3 X10'3 (1.8-7.7); NEUTROPHILS % (AUTO) 60.5 % (42-75); PLATELET COUNT 78 X10'3 (140-440)
[2018-02-13] MEDS: ipratropium/albuterol 3ml nebule IH SCH ×3 (07:27→21:38)
[2018-02-13] MEDS: dorzolamide 2% ophthalmic drops 10ml EACHEYE SCH ×2 (09:26→19:48)
[2018-02-13] MEDS: allopurinol 100mg tablet PO SCH (09:27)
[2018-02-13] MEDS: gabapentin 300mg capsule PO SCH (09:27)
[2018-02-13] MEDS: potassium Cl oral solution 20 MEQ/15 ML PO SCH (09:27)
[2018-02-13] MEDS: carVEDilol 3.125mg tablet PO SCH ×2 (09:28→19:48)
[2018-02-13] MEDS: amLODIPine 5mg tablet PO SCH (09:28)
[2018-02-13 09:40] LABS: ANISOCYTOSIS 2+; PLATELET ESTIMATE DECREASED
[2018-02-13 09:41] LABS: BURR CELLS FEW; POLYCHROMASIA FEW; SCHISTOCYTES FEW
[2018-02-13] MEDS ORDERED: potassium Cl oral solution 20 MEQ/15 ML PO ONE (09:55)
[2018-02-13 10:00] VITALS: BP 127/61
[2018-02-13] MEDS: furosemide 20MG tablet PO SCH (10:19)
[2018-02-13] MEDS: acetaminophen 325mg tablet PO PRN (10:31)
[2018-02-13] MEDS: pantoprazole 40mg Tablet.DR PO SCH (10:32)
[2018-02-13 14:43] LABS: OCCULT BLOOD STOOL POSITIVE (Neg)
[2018-02-13 18:00] VITALS: BP 127/54
[2018-02-13] MEDS: latanoprost 0.005% 2.5ml ophthalmic drops EACHEYE SCH (19:48)
[2018-02-13] MEDS: nystatin 15 GM powder TP SCH (21:00)
[2018-02-13 22:00] VITALS: BP 136/60
[2018-02-14] VITALS (7 sets, daily range): BP systolic 100–139; BP diastolic 48–65
[2018-02-14] MEDS: furosemide 20MG tablet PO SCH (08:00)
[2018-02-14] MEDS: potassium Cl oral solution 20 MEQ/15 ML PO SCH (08:00)
[2018-02-14 08:03] LABS: ALANINE AMINOTRANSFERASE 43 U/L (12-78); ALBUMIN 2.4 G/DL (3.4-5.0); ALKALINE PHOSPHATASE 72 IU/L (46-116); ANION GAP 12 (8-16); ASPARTATE AMINO TRANSFERASE 60 U/L (10-37); BLOOD UREA NITROGEN 52 MG/DL (7-18); BUN/CREATININE RATIO 19.5 (6.6-38.0); CALCIUM 8.1 MG/DL (8.5-10.1); CHLORIDE 110 MMOL/L (99-107); CREATININE 2.67 MG/DL (0.40-0.90); GLUCOSE 103 MG/DL (70-104); POTASSIUM 3.8 MMOL/L (3.5-5.1); SODIUM 143 MMOL/L (135-145); TOTAL CARBON DIOXIDE 21.4 MMOL/L (24-32); TOTAL PROTEIN 4.7 G/DL (6.4-8.2); eGFR 17 ML/MIN
[2018-02-14 08:07] LABS: EOSINOPHILS # (AUTO) 0.4 X10'3 (0-0.9); EOSINOPHILS % (AUTO) 8.7 % (0-6); HEMOGLOBIN 8.6 g/dl (12.0-16.0); LYMPHOCYTES % (AUTO) 21.3 % (21-51); MEAN CORPUSCULAR HEMOGLOBIN 29.9 PG (27.0-31.0); MEAN CORPUSCULAR HGB CONC 32.9 % (33.0-36.5); MEAN CORPUSCULAR VOLUME 90.9 FL (78-98); MEAN PLATELET VOLUME 8.6 FL (7.4-10.4); MONOCYTES # (AUTO) 0.7 X10'3 (0-0.9); MONOCYTES % (AUTO) 15.7 % (2-12); NEUTROPHILS # (AUTO) 2.5 X10'3 (1.8-7.7); NEUTROPHILS % (AUTO) 53.3 % (42-75); PLATELET COUNT 68 X10'3 (140-440); RED BLOOD COUNT 2.87 X10'6 (4.20-5.60); RED CELL DISTRIBUTION WIDTH 18.5 % (11.5-14.5); WHITE BLOOD COUNT 4.6 X10'3 (4.5-11.0)
[2018-02-14] MEDS: carVEDilol 3.125mg tablet PO SCH ×2 (08:42→19:53)
[2018-02-14] MEDS: gabapentin 300mg capsule PO SCH (08:42)
[2018-02-14] MEDS: allopurinol 100mg tablet PO SCH (08:42)
[2018-02-14] MEDS: pantoprazole 40mg Tablet.DR PO SCH (08:42)
[2018-02-14] MEDS: dorzolamide 2% ophthalmic drops 10ml EACHEYE SCH ×2 (08:43→19:53)
[2018-02-14] MEDS: amLODIPine 5mg tablet PO SCH (08:48)
[2018-02-14] MEDS: nystatin 15 GM powder TP SCH ×3 (08:48→20:27)
[2018-02-14] MEDS: ipratropium/albuterol 3ml nebule IH SCH ×3 (09:22→21:48)
[2018-02-14] MEDS ORDERED: fentaNYL/PF 50MCG/1 ML 2ML syringe ONE (15:33)
[2018-02-14] MEDS ORDERED: MIDAZolam 5mg/5ml vial ONE (15:34)
[2018-02-14] MEDS ORDERED: LIDOcaine Viscous 15ml cup ONE (15:34)
[2018-02-14] MEDS: normal saline 1000ml 1,000 ML IV SCH (17:47)
[2018-02-14] MEDS: latanoprost 0.005% 2.5ml ophthalmic drops EACHEYE SCH (20:26)
[2018-02-15 06:00] VITALS: BP 123/51
[2018-02-15] MEDS: ipratropium/albuterol 3ml nebule IH SCH (07:18)
[2018-02-15 07:59] LABS: BASOPHILS % (AUTO) 0.5 % (0-1); EOSINOPHILS # (AUTO) 0.3 X10'3 (0-0.9); EOSINOPHILS % (AUTO) 5.6 % (0-6); HEMATOCRIT 25.3 % (35.0-45.0); HEMOGLOBIN 8.4 g/dl (12.0-16.0); LYMPHOCYTES # (AUTO) 0.9 X10'3 (1.1-4.8); MEAN CORPUSCULAR HGB CONC 33.3 % (33.0-36.5); MEAN CORPUSCULAR VOLUME 90.3 FL (78-98); MEAN PLATELET VOLUME 8.4 FL (7.4-10.4); MONOCYTES # (AUTO) 0.7 X10'3 (0-0.9); MONOCYTES % (AUTO) 12.1 % (2-12); NEUTROPHILS # (AUTO) 3.6 X10'3 (1.8-7.7); NEUTROPHILS % (AUTO) 65.8 % (42-75); PLATELET COUNT 84 X10'3 (140-440); RED BLOOD COUNT 2.81 X10'6 (4.20-5.60); RED CELL DISTRIBUTION WIDTH 18.3 % (11.5-14.5); WHITE BLOOD COUNT 5.5 X10'3 (4.5-11.0)
[2018-02-15] MEDS: nystatin 15 GM powder TP SCH (08:17)
[2018-02-15] MEDS: pantoprazole 40mg Tablet.DR PO SCH (08:17)
[2018-02-15] MEDS: amLODIPine 5mg tablet PO SCH (08:17)
[2018-02-15] MEDS: potassium Cl oral solution 20 MEQ/15 ML PO SCH (08:17)
[2018-02-15] MEDS: allopurinol 100mg tablet PO SCH (08:17)
[2018-02-15] MEDS: dorzolamide 2% ophthalmic drops 10ml EACHEYE SCH (08:17)
[2018-02-15] MEDS: gabapentin 300mg capsule PO SCH (08:17)
[2018-02-15] MEDS: furosemide 20MG tablet PO SCH (08:17)
[2018-02-15] MEDS: carVEDilol 3.125mg tablet PO SCH (08:17)
[2018-02-15 08:21] LABS: ALANINE AMINOTRANSFERASE 35 U/L (12-78); ALBUMIN 2.2 G/DL (3.4-5.0); ALBUMIN/GLOBULIN RATIO 1.1 (1.1-1.5); ALKALINE PHOSPHATASE 68 IU/L (46-116); ANION GAP 11 (8-16); ASPARTATE AMINO TRANSFERASE 49 U/L (10-37); BILIRUBIN,TOTAL 0.8 MG/DL (0.1-1.0); BLOOD UREA NITROGEN 47 MG/DL (7-18); BUN/CREATININE RATIO 19.3 (6.6-38.0); CALCIUM 8.2 MG/DL (8.5-10.1); CHLORIDE 113 MMOL/L (99-107); CREATININE 2.44 MG/DL (0.40-0.90); GLUCOSE 85 MG/DL (70-104); POTASSIUM 3.8 MMOL/L (3.5-5.1); SODIUM 145 MMOL/L (135-145); TOTAL CARBON DIOXIDE 20.7 MMOL/L (24-32); TOTAL PROTEIN 4.2 G/DL (6.4-8.2); eGFR 19 ML/MIN
[2018-02-15 11:01] VITALS: BP 120/61
[2018-02-15] MEDS: normal saline 1000ml 1,000 ML IV SCH (11:38)
[2018-02-15] MEDS: acetaminophen 325mg tablet PO PRN (14:33)
== END 2018-02-15 14:46 | DRG 378 ==
LOC: ER 01:20 → ED HOLD 04:51 → CMPBEDREQ 05:45 → ORTHO 4S 05:49
PROVIDERS: ADMIT Internal Medicine; ATTEND Family Medicine
PROC: 30233N1 Transfusion of Nonautologous Red Blood Cells into Peripheral Vein, Percutaneous Approach (ICD-10-PCS; 2018-02-11)
PROC: 30233N1 Transfusion of Nonautologous Red Blood Cells into Peripheral Vein, Percutaneous Approach (ICD-10-PCS; 2018-02-12)
PROC: 0W3P8ZZ Control Bleeding in Gastrointestinal Tract, Via Natural or Artificial Opening Endoscopic (ICD-10-PCS; principal; 2018-02-14)
PROC: 0DB68ZX Excision of Stomach, Via Natural or Artificial Opening Endoscopic, Diagnostic (ICD-10-PCS; 2018-02-14)
DX: K31.811 Angiodysplasia of stomach and duodenum with bleeding (principal); I13.0 Hypertensive heart and chronic kidney disease with heart failure and stage 1 through stage 4 chronic kidney disease, or unspecified chronic kidney disease; E44.0 Moderate protein-calorie malnutrition; J44.9 Chronic obstructive pulmonary disease, unspecified; N18.3 Chronic kidney disease, stage 3 (moderate); E11.22 Type 2 diabetes mellitus with diabetic chronic kidney disease; I25.10 Atherosclerotic heart disease of native coronary artery without angina pectoris; D50.0 Iron deficiency anemia secondary to blood loss (chronic); K21.0 Gastro-esophageal reflux disease with esophagitis; K29.70 Gastritis, unspecified, without bleeding; B19.20 Unspecified viral hepatitis C without hepatic coma; I50.9 Heart failure, unspecified; E87.6 Hypokalemia; M54.9 Dorsalgia, unspecified; M10.9 Gout, unspecified; I25.2 Old myocardial infarction; Z98.891 History of uterine scar from previous surgery; Z95.1 Presence of aortocoronary bypass graft; Z95.5 Presence of coronary angioplasty implant and graft; Z90.49 Acquired absence of other specified parts of digestive tract; Z88.1 Allergy status to other antibiotic agents; Z88.6 Allergy status to analgesic agent; Z91.048 Other nonmedicinal substance allergy status; Z79.899 Other long term (current) drug therapy; Z86.73 Personal history of transient ischemic attack (TIA), and cerebral infarction without residual deficits; Z68.22 Body mass index [BMI] 22.0-22.9, adult
CPT/HCPCS: 36415; 43239; 70450; 72100; 80053; 80320; 81003; 82272; 83735; 83880; 84100; 84132; 84443; 84484; 85025; 85610; 85730; 86870; 86885; 86900; 86901; 86902; 86905; 86906; 86922; 87070; 88305; 88342; 93005; 94640; 94760; 96374; 97110; 97116; 97162; 97530; 99152; 99153; 99291; A4620; A6257; A6258; C9113; J1940; J2250; J3010; J7030; P9016

== ENCOUNTER 2018-04-29 14:01 | Emergency (ER) | payer MEDICARE ==
[~2018-04-29] VITALS: Ht 162.6 cm; Wt 63.0 kg
[~2018-04-29 14:01] MED LIST changes: -FERR324T4 PO; +FLUT16SP10; -FLUT1AER IH; +FLUT1BLS3; +FURO-150 PO; -FURO20TA4 PO; +PANT40SU2 PO
[2018-04-29] MEDS ORDERED: TETanus/Pertussis (Acell)/Diphther VAC/PF (Tdap-Adult) 0.5ml syringe IM ONE (14:55)
--- NOTE | 2018-04-29 15:49 | NUR ---
PT SON IS ADY MOHAN P# [phone], RECEIVED CALL FROM ART NIETO [phone] STATING ADY IS AT [facility] [phone], CALLED [facility] AND HE IS THERE AND MESSAGE TO BE GIVEN BY STAFF TO ADY THAT PT CAN BE PICKED UP BEING DISCHARGED.
[2018-04-29 15:54] VITALS: BP 141/75
[2018-04-29] MEDS ORDERED: acetaminophen 325mg tablet PO ONE (15:55)
[2018-04-29] MEDS ORDERED: amLODIPine 5mg tablet PO ONE (16:05)
== END 2018-04-29 17:00 | disposition home or self-care (01) ==
LOC: ER 14:03
DX: S60.012A Contusion of left thumb without damage to nail, initial encounter (principal); S00.01XA Abrasion of scalp, initial encounter; S80.212A Abrasion, left knee, initial encounter; Z86.73 Personal history of transient ischemic attack (TIA), and cerebral infarction without residual deficits; M79.631 Pain in right forearm; I25.10 Atherosclerotic heart disease of native coronary artery without angina pectoris; I25.2 Old myocardial infarction; J44.9 Chronic obstructive pulmonary disease, unspecified; K21.9 Gastro-esophageal reflux disease without esophagitis; M10.9 Gout, unspecified; I12.9 Hypertensive chronic kidney disease with stage 1 through stage 4 chronic kidney disease, or unspecified chronic kidney disease; E11.22 Type 2 diabetes mellitus with diabetic chronic kidney disease; N18.9 Chronic kidney disease, unspecified; Z95.5 Presence of coronary angioplasty implant and graft; Z90.49 Acquired absence of other specified parts of digestive tract; Z95.1 Presence of aortocoronary bypass graft; Z98.890 Other specified postprocedural states; Z88.5 Allergy status to narcotic agent; Z88.1 Allergy status to other antibiotic agents; Z79.899 Other long term (current) drug therapy; W19.XXXA Unspecified fall, initial encounter; Y93.89 Activity, other specified; Y92.89 Other specified places as the place of occurrence of the external cause; Y99.9 Unspecified external cause status; R51 Headache
CPT/HCPCS: 70450; 72125; 72170; 73090; 73130; 90471; 90715; 99284

== ENCOUNTER 2018-09-01 13:48 | Inpatient (IN) | payer MEDICARE ==
[~2018-09-01] VITALS: Ht 162.6 cm; Wt 54.0 kg
[~2018-09-01 13:48] MED LIST changes: +CARV-50 PO; +CEFD300C3 PO; +FLO0.4C PO; +LANTUS SQ; +POTA10TA19 PO
--- NOTE | 2018-09-01 14:07 | NUR ---
BIB EMS WITH C/O LETHARGY, EXACERBATING OVER THE PAST 2 DAYS. SLEEPY, BUT RESPONDS TO VERBAL STIMULI APPROPRIATELY. SKIN WARM AND DRY. SON AT THE BEDSIDE. IV SITE NOTED IN LEFT ARM, STARTED BY EMS.
[2018-09-01] MEDS ORDERED: normal saline 1000ML IV soln IVB ONE (14:15)
[2018-09-01 14:33] LABS: BASOPHILS % (AUTO) 1.1 % (0-1); EOSINOPHILS # (AUTO) 0.1 X10'3 (0-0.9); EOSINOPHILS % (AUTO) 2.2 % (0-6); HEMATOCRIT 26.5 % (35.0-45.0); LYMPHOCYTES # (AUTO) 0.6 X10'3 (1.1-4.8); LYMPHOCYTES % (AUTO) 14.6 % (21-51); MEAN CORPUSCULAR HEMOGLOBIN 34.8 PG (27.0-31.0); MEAN CORPUSCULAR HGB CONC 34.1 g/dL (33.0-36.5); MEAN CORPUSCULAR VOLUME 102.1 FL (78-98); MEAN PLATELET VOLUME 8.7 FL (7.4-10.4); MONOCYTES # (AUTO) 0.6 X10'3 (0-0.9); MONOCYTES % (AUTO) 15.4 % (2-12); NEUTROPHILS # (AUTO) 2.5 X10'3 (1.8-7.7); NEUTROPHILS % (AUTO) 66.7 % (42-75); PLATELET COUNT 80 X10'3 (140-440); RED BLOOD COUNT 2.59 X10'6 (4.20-5.60); RED CELL DISTRIBUTION WIDTH 19.8 % (11.5-14.5); WHITE BLOOD COUNT 3.8 X10'3 (4.5-11.0)
[2018-09-01 15:07] LABS: ALANINE AMINOTRANSFERASE 48 U/L (12-78); ALBUMIN 2.7 G/DL (3.4-5.0); ALKALINE PHOSPHATASE 73 IU/L (46-116); ANION GAP 12 (8-16); ASPARTATE AMINO TRANSFERASE 36 U/L (10-37); BILIRUBIN,TOTAL 0.7 MG/DL (0.1-1.0); BLOOD UREA NITROGEN 143 MG/DL (7-18); BUN/CREATININE RATIO 51.6 (6.6-38.0); CALCIUM 8.2 MG/DL (8.5-10.1); CHLORIDE 89 MMOL/L (99-107); CREATININE 2.77 MG/DL (0.40-0.90); GLUCOSE 204 MG/DL (70-104); SODIUM 132 MMOL/L (135-145); TOTAL CARBON DIOXIDE 30.9 MMOL/L (24-32); TOTAL PROTEIN 5.3 G/DL (6.4-8.2); TROPONIN I < 0.04 NG/ML (0.0-0.05); eGFR 16 ML/MIN
[2018-09-01 15:14] LABS: POTASSIUM 2.3 MMOL/L (3.5-5.1)
[2018-09-01] MEDS ORDERED: potassium 10mEq/100ml NS w/LIDOcaine (10mg/bag) IV ONE ×2 (15:15)
[2018-09-01 15:48] LABS: CLARITY,URINE CLEAR (Clear); COLOR,URINE YELLOW (Yellow); GLUCOSE, URINE NEGATIVE (Neg); KETONES,URINE NEGATIVE (Neg); LEUKOCYTE ESTERASE ,URINE SMALL (Neg); NITRITES, URINE NEGATIVE (Neg); OCCULT BLOOD,URINE NEGATIVE (Neg); PROTEIN,URINE NEGATIVE (Neg)
[2018-09-01 15:49] LABS: UA COLLECTION TYPE STRAIGHT CATH
[2018-09-01 15:55] LABS: BACTERIA,URINE FEW /HPF (Neg); RBC,URINE 0-2 /HPF (0-2)
[2018-09-01 15:56] LABS: MUCUS STRANDS FEW /LPF (Neg); SQUAMOUS EPITHELIAL CELL,UR FEW /LPF (FEW); WBC CLUMPS,URINE FEW /HPF (NEGATIVE)
[2018-09-01] MEDS: sodium chloride 0.45% 1,000 ML IV SCH (16:23)
[2018-09-01] MEDS ORDERED: magnesium 2GM in 50ml NS 50 ML IV PRN (16:25)
[2018-09-01] MEDS ORDERED: potassium Cl 20 mEq SR tablet PO PRN ×2 (16:25)
[2018-09-01] MEDS ORDERED: ondansetron/PF 4mg/2ml inj IV PRN (16:25)
[2018-09-01] MEDS ORDERED: potassium Cl 40MEQ/NS 500ml 500 ML IV PRN ×2 (16:25)
[2018-09-01] MEDS ORDERED: magnesium Cl slow-release 64mg tablet PO PRN (16:25)
[2018-09-01] MEDS ORDERED: magnesium 4gm in 100ml NS 100 ML IV PRN (16:25)
[2018-09-01] MEDS ORDERED: MULT1TAB74 PO (17:12)
[2018-09-01] MEDS ORDERED: CARV6.252 PO (17:12)
[2018-09-01] MEDS ORDERED: XAL0.005OS EACHEYE (17:12)
[2018-09-01] MEDS ORDERED: PRED2.5T4 PO (17:12)
[2018-09-01] MEDS ORDERED: NITR100C PO (17:12)
[2018-09-01 22:30] VITALS: BP 153/64
--- NOTE | 2018-09-01 22:30 | NUR ---
Patient in room PCU 3028. I have received report from Crystal COBIAN and had the opportunity to ask questions and assume patient care.
[2018-09-01 23:00] LABS: ANISOCYTOSIS 2+; TOTAL CELLS COUNTED 100
[2018-09-01 23:01] LABS: PLATELET ESTIMATE DECREASED; POLYCHROMASIA FEW
--- NOTE | 2018-09-01 23:48 | NUR ---
has almanzar order but pt wants to try Wick first, would prefer to use bedpan and not have almanzar if possible.
[2018-09-02] MEDS: latanoprost 0.005% 2.5ml ophthalmic drops EACHEYE SCH ×2 (00:24→20:01)
[2018-09-02 02:00] VITALS: BP 136/55
--- NOTE | 2018-09-02 03:23 | NUR ---
pt prefers to use bedpan
[2018-09-02] MEDS: acetaminophen 325mg tablet PO PRN ×2 (03:45→14:53)
[2018-09-02 04:54] LABS: BASOPHILS % (AUTO) 0.9 % (0-1); EOSINOPHILS # (AUTO) 0.1 X10'3 (0-0.9); EOSINOPHILS % (AUTO) 2.9 % (0-6); HEMATOCRIT 25.8 % (35.0-45.0); HEMOGLOBIN 8.5 g/dl (12.0-16.0); LYMPHOCYTES # (AUTO) 0.6 X10'3 (1.1-4.8); LYMPHOCYTES % (AUTO) 16.4 % (21-51); MEAN CORPUSCULAR HEMOGLOBIN 34.1 PG (27.0-31.0); MEAN CORPUSCULAR VOLUME 103.3 FL (78-98); MONOCYTES # (AUTO) 0.5 X10'3 (0-0.9); MONOCYTES % (AUTO) 14.9 % (2-12); NEUTROPHILS # (AUTO) 2.4 X10'3 (1.8-7.7); NEUTROPHILS % (AUTO) 64.9 % (42-75); PLATELET COUNT 75 X10'3 (140-440); RED CELL DISTRIBUTION WIDTH 19.9 % (11.5-14.5); WHITE BLOOD COUNT 3.7 X10'3 (4.5-11.0)
[2018-09-02 05:02] LABS: ALBUMIN 2.5 G/DL (3.4-5.0); ANION GAP 9 (8-16); BLOOD UREA NITROGEN 127 MG/DL (7-18); BUN/CREATININE RATIO 53.6 (6.6-38.0); CALCIUM 7.6 MG/DL (8.5-10.1); CHLORIDE 99 MMOL/L (99-107); CREATININE 2.37 MG/DL (0.40-0.90); GLUCOSE 125 MG/DL (70-104); MAGNESIUM 3.3 MG/DL (1.5-2.4); SODIUM 135 MMOL/L (135-145); TOTAL CARBON DIOXIDE 27.3 MMOL/L (24-32); eGFR 19 ML/MIN
[2018-09-02 05:04] LABS: POTASSIUM 2.7 MMOL/L (3.5-5.1)
--- NOTE | 2018-09-02 05:21 | NUR ---
Took critical value from lab. Pt has K of 2.7. MANGO Munoz notified.
[2018-09-02 06:03] LABS: PLATELET ESTIMATE DECREASED
[2018-09-02 06:04] LABS: ANISOCYTOSIS 2+; POLYCHROMASIA 1+
[2018-09-02 06:05] LABS: ELLIPTOCYTES FEW; POIKILOCYTOSIS 1+
--- NOTE | 2018-09-02 06:45 | NUR ---
Patient in room PCU 3028. I have received report from Tammy COBIAN and had the opportunity to ask questions and assume patient care.
[2018-09-02 07:00] VITALS: BP 147/56
[2018-09-02] MEDS: sodium chloride 0.45% 1,000 ML IV SCH ×3 (07:03→20:13)
[2018-09-02] MEDS: K and/or MAG REPLACEMENT MC SCH (08:00)
[2018-09-02] MEDS ORDERED: ipratropium/albuterol 3ml nebule IH SCH (09:50)
[2018-09-02] MEDS: dorzolamide 2% ophthalmic drops 10ml EACHEYE SCH ×2 (10:16→20:00)
[2018-09-02] MEDS: predniSONE 5mg tablet PO SCH (10:16)
[2018-09-02 11:00] VITALS: BP 140/54
[2018-09-02] MEDS: LIDOcaine 1% 30ml vial 5 ML in potassium Cl 40MEQ/NS 500ml 500 ML IV SCH ×3 (14:31→19:48)
[2018-09-02 15:00] VITALS: BP 147/51
--- NOTE | 2018-09-02 15:58 | NUR ---
PAGER ID: [phone] MESSAGE: Bhavin [id number]. Received fax ordered by Dr. Swartz regarding a urine culture positive for pseudomonas aeruginosa finalized on 08/30/18 will put fax in chart. Sheila [phone]
[2018-09-02] MEDS: ipratropium/albuterol 3ml nebule NEB SCH ×2 (16:16→20:48)
--- NOTE | 2018-09-02 16:36 | NUR ---
PAGER ID: [phone] MESSAGE: Douglas Rincon. Pt would like to have code status changed from full code. Sheila [id number]
--- NOTE | 2018-09-02 16:37 | NUR ---
Patient and son have expressed that the patient does not want to be a full code, paged Dr. Morgan to address the code status.
--- NOTE | 2018-09-02 17:18 | NUR ---
PAGER ID: [phone] MESSAGE: [id number]. Pt's advanced directive is in chart, pt wants to be changed to DNR per advanced directive. Sheila [phone]
[2018-09-02 18:00] VITALS: BP 159/64
--- NOTE | 2018-09-02 18:14 | NUR ---
Problems reprioritized. Patient report given, questions answered & plan of care reviewed with Tammy COBIAN. Patient stable at transfer of care.
--- NOTE | 2018-09-02 18:30 | NUR ---
Patient in room PCU 3028. I have received report from Sheila COBIAN and had the opportunity to ask questions and assume patient care.
[2018-09-02] MEDS: carvedilol 6.25mg tablet PO SCH (19:57)
[2018-09-02] MEDS ORDERED: dorzolamide 2% ophthalmic drops 10ml EACHEYE SCH (20:00)
[2018-09-02] MEDS ORDERED: latanoprost 0.005% 2.5ml ophthalmic drops EACHEYE SCH (21:00)
[2018-09-02 22:00] VITALS: BP 147/60
[2018-09-03 02:00] VITALS: BP 133/56
[2018-09-03] MEDS: acetaminophen 325mg tablet PO PRN (05:45)
[2018-09-03 06:00] VITALS: BP 140/57
--- NOTE | 2018-09-03 06:00 | NUR ---
Patient in room PCU 3028. I have received report from Tammy COBIAN and had the opportunity to ask questions and assume patient care.
[2018-09-03 06:21] LABS: EOSINOPHILS # (AUTO) 0.1 X10'3 (0-0.9); EOSINOPHILS % (AUTO) 2.7 % (0-6); HEMATOCRIT 25.3 % (35.0-45.0); HEMOGLOBIN 8.1 g/dl (12.0-16.0); LYMPHOCYTES # (AUTO) 0.8 X10'3 (1.1-4.8); LYMPHOCYTES % (AUTO) 19.6 % (21-51); MEAN CORPUSCULAR HEMOGLOBIN 34.2 PG (27.0-31.0); MEAN CORPUSCULAR HGB CONC 32.2 g/dL (33.0-36.5); MEAN CORPUSCULAR VOLUME 106.4 FL (78-98); MEAN PLATELET VOLUME 8.6 FL (7.4-10.4); MONOCYTES # (AUTO) 0.6 X10'3 (0-0.9); MONOCYTES % (AUTO) 14.1 % (2-12); NEUTROPHILS # (AUTO) 2.6 X10'3 (1.8-7.7); NEUTROPHILS % (AUTO) 62.6 % (42-75); PLATELET COUNT 80 X10'3 (140-440); RED BLOOD COUNT 2.38 X10'6 (4.20-5.60); RED CELL DISTRIBUTION WIDTH 20.7 % (11.5-14.5); WHITE BLOOD COUNT 4.1 X10'3 (4.5-11.0)
[2018-09-03 06:31] LABS: ALBUMIN 2.4 G/DL (3.4-5.0); ANION GAP 7 (8-16); BLOOD UREA NITROGEN 103 MG/DL (7-18); BUN/CREATININE RATIO 53.1 (6.6-38.0); CHLORIDE 107 MMOL/L (99-107); CREATININE 1.94 MG/DL (0.40-0.90); GLUCOSE 104 MG/DL (70-104); MAGNESIUM 3.2 MG/DL (1.5-2.4); POTASSIUM 3.6 MMOL/L (3.5-5.1); SODIUM 139 MMOL/L (135-145); TOTAL CARBON DIOXIDE 24.8 MMOL/L (24-32); eGFR 24 ML/MIN
--- NOTE | 2018-09-03 06:32 | NUR ---
Problems reprioritized. Patient report given, questions answered & plan of care reviewed with kelle and Maritza RNs.
--- NOTE | 2018-09-03 06:33 | NUR ---
pt rested throught the night, wanted tylenol this am for back pain. voids in bedpan
[2018-09-03 07:21] LABS: ANISOCYTOSIS 3+; HYPOCHROMASIA 1+; MICROCYTOSIS 1+; PLATELET ESTIMATE DECREASED
[2018-09-03] MEDS: gabapentin 300mg capsule PO SCH (07:55)
[2018-09-03] MEDS: carvedilol 6.25mg tablet PO SCH ×2 (07:55→20:14)
[2018-09-03] MEDS: allopurinol 100mg tablet PO SCH (07:55)
[2018-09-03] MEDS: multivitamins, therapeutics tablet PO SCH (07:55)
[2018-09-03] MEDS: dorzolamide 2% ophthalmic drops 10ml EACHEYE SCH ×2 (07:56→20:16)
[2018-09-03] MEDS: sodium chloride 0.45% 1,000 ML IV SCH ×2 (07:57→20:19)
[2018-09-03] MEDS: K and/or MAG REPLACEMENT MC SCH (08:00)
[2018-09-03] MEDS: ipratropium/albuterol 3ml nebule NEB SCH ×3 (08:22→20:21)
--- NOTE | 2018-09-03 09:20 | NUR ---
Called report to Zeny COBIAN on surgical. Transferred to medical floor, patient stable for transfer, all medications, and chart given to MANGO Durham. Belongings sent with patient.
[2018-09-03 11:00] VITALS: BP 134/51
[2018-09-03] MEDS: CefTRIAXone/D5W-Rocephin 1gm 50 ML IV SCH (15:46)
[2018-09-03 20:00] VITALS: BP 150/68
[2018-09-03] MEDS: latanoprost 0.005% 2.5ml ophthalmic drops EACHEYE SCH (20:15)
[2018-09-04] VITALS: BP 161/72
[2018-09-04 05:20] LABS: BASOPHILS # (AUTO) 0.1 X10'3 (0-0.2); BASOPHILS % (AUTO) 1.2 % (0-1); EOSINOPHILS # (AUTO) 0.1 X10'3 (0-0.9); EOSINOPHILS % (AUTO) 2.9 % (0-6); HEMATOCRIT 24.5 % (35.0-45.0); HEMOGLOBIN 7.8 g/dl (12.0-16.0); LYMPHOCYTES # (AUTO) 0.8 X10'3 (1.1-4.8); LYMPHOCYTES % (AUTO) 18.8 % (21-51); MEAN CORPUSCULAR HEMOGLOBIN 33.6 PG (27.0-31.0); MEAN CORPUSCULAR HGB CONC 31.9 g/dL (33.0-36.5); MEAN CORPUSCULAR VOLUME 105.4 FL (78-98); MEAN PLATELET VOLUME 8.5 FL (7.4-10.4); MONOCYTES # (AUTO) 0.6 X10'3 (0-0.9); MONOCYTES % (AUTO) 13.8 % (2-12); NEUTROPHILS # (AUTO) 2.8 X10'3 (1.8-7.7); NEUTROPHILS % (AUTO) 63.3 % (42-75); PLATELET COUNT 85 X10'3 (140-440); RED BLOOD COUNT 2.33 X10'6 (4.20-5.60); RED CELL DISTRIBUTION WIDTH 20.2 % (11.5-14.5); WHITE BLOOD COUNT 4.4 X10'3 (4.5-11.0)
[2018-09-04 05:29] LABS: ALBUMIN 2.3 G/DL (3.4-5.0); ANION GAP 10 (8-16); BLOOD UREA NITROGEN 90 MG/DL (7-18); BUN/CREATININE RATIO 49.7 (6.6-38.0); CALCIUM 8.1 MG/DL (8.5-10.1); CHLORIDE 106 MMOL/L (99-107); CREATININE 1.81 MG/DL (0.40-0.90); GLUCOSE 100 MG/DL (70-104); MAGNESIUM 3.1 MG/DL (1.5-2.4); POTASSIUM 3.2 MMOL/L (3.5-5.1); SODIUM 139 MMOL/L (135-145); TOTAL CARBON DIOXIDE 23.3 MMOL/L (24-32); eGFR 26 ML/MIN
[2018-09-04 05:56] LABS: HEMOGLOBIN A1C 5.4 % (4.5-6.2)
[2018-09-04 06:39] LABS: ANISOCYTOSIS 3+; PLATELET ESTIMATE DECREASED
[2018-09-04 06:40] LABS: ELLIPTOCYTES FEW
[2018-09-04] MEDS: ipratropium/albuterol 3ml nebule NEB SCH ×2 (07:31→14:48)
[2018-09-04] MEDS: carvedilol 6.25mg tablet PO SCH (07:56)
[2018-09-04] MEDS: CefTRIAXone/D5W-Rocephin 1gm 50 ML IV SCH (07:56)
[2018-09-04] MEDS: allopurinol 100mg tablet PO SCH (07:56)
[2018-09-04] MEDS: gabapentin 300mg capsule PO SCH (07:59)
[2018-09-04] MEDS: multivitamins, therapeutics tablet PO SCH (07:59)
[2018-09-04] MEDS: dorzolamide 2% ophthalmic drops 10ml EACHEYE SCH (08:00)
[2018-09-04] MEDS: K and/or MAG REPLACEMENT MC SCH (08:00)
[2018-09-04] MEDS: predniSONE 5mg tablet PO SCH (08:00)
[2018-09-04] MEDS ORDERED: potassium Cl oral solution 20 MEQ/15 ML PO PRN (08:08)
[2018-09-04] MEDS: potassium Cl oral solution 20 MEQ/15 ML PO PRN ×2 (09:08→14:06)
--- NOTE | 2018-09-04 11:26 | NUR ---
Student documentation: I have reviewed interventions, assessments performed and documented by Huong ROLDAN [facility].
[2018-09-04 11:30] VITALS: BP 143/59
[2018-09-04] MEDS ORDERED: cefTAZidime inj. 1 GM in normal saline 100ml IV soln 100 ML IV SCH (11:30)
--- NOTE | 2018-09-04 11:31 | NUR ---
Pt only voided 200ml/hr this morning even with encouraging her to void, Dr Morgan wants to keep encouraging pt to void, if unable to void, straight cath pt prn for greater than 600 mls
--- NOTE | 2018-09-04 11:55 | NUR ---
Pt voided 400ml in bsc. No need to straight cath at this time will continue to monitor.
[2018-09-04] MEDS: acetaminophen 325mg tablet PO PRN (12:19)
--- NOTE | 2018-09-04 14:46 | NUR ---
Extended PIV inserted to the right upper arm basilic vein x2 attempts using ultrasound. José Miguel aparicio. Son at bedside. Addendum: 09/04/18 at 1448 by Joaquina Ayoub RN Amended: Links added.
--- NOTE | 2018-09-04 14:59 | NUR ---
Report called to [facility] Carcamo taken out by student nurse, Pt will be transferred soon. Son has taken belongings home.
--- NOTE | 2018-09-04 15:48 | NUR ---
Andrés has picked up patient for transfer. Pt in stable condition and appropriate to be transferred.
== END 2018-09-04 15:43 | DRG 682 ==
LOC: ER 13:49 → PCU 3S 16:30 → CMPBEDREQ 21:31 → SUR 3N 09-03 09:31
PROVIDERS: ADMIT Internal Medicine; ATTEND Family Medicine
DX: N17.0 Acute kidney failure with tubular necrosis (principal); J96.00 Acute respiratory failure, unspecified whether with hypoxia or hypercapnia; D61.818 Other pancytopenia; J44.1 Chronic obstructive pulmonary disease with (acute) exacerbation; E87.1 Hypo-osmolality and hyponatremia; N39.0 Urinary tract infection, site not specified; E87.6 Hypokalemia; E11.22 Type 2 diabetes mellitus with diabetic chronic kidney disease; E11.42 Type 2 diabetes mellitus with diabetic polyneuropathy; E86.0 Dehydration; G93.89 Other specified disorders of brain; I12.9 Hypertensive chronic kidney disease with stage 1 through stage 4 chronic kidney disease, or unspecified chronic kidney disease; I25.10 Atherosclerotic heart disease of native coronary artery without angina pectoris; K21.9 Gastro-esophageal reflux disease without esophagitis; N18.9 Chronic kidney disease, unspecified; D63.8 Anemia in other chronic diseases classified elsewhere; B19.20 Unspecified viral hepatitis C without hepatic coma; M10.9 Gout, unspecified; Z66 Do not resuscitate; Z90.49 Acquired absence of other specified parts of digestive tract; Z98.891 History of uterine scar from previous surgery; I25.2 Old myocardial infarction; Z95.1 Presence of aortocoronary bypass graft; Z88.1 Allergy status to other antibiotic agents; Z88.6 Allergy status to analgesic agent; Z79.899 Other long term (current) drug therapy; Z79.4 Long term (current) use of insulin; Z86.73 Personal history of transient ischemic attack (TIA), and cerebral infarction without residual deficits
CPT/HCPCS: 36415; 70450; 71045; 80048; 80053; 81001; 82140; 82607; 82948; 83036; 83735; 84484; 85025; 87070; 87077; 87088; 87186; 93005; 94640; 94760; 96365; 96366; 97110; 97161; 97530; 99285; G0378; J0696; J0713; J3480; J3490; J7030; J7512

== ENCOUNTER 2019-01-10 04:02 | Emergency (ER) | payer MEDICARE ==
[~2019-01-10] VITALS: Ht 162.6 cm; Wt 64.5 kg
[~2019-01-10 04:02] MED LIST changes: -AMLO10TA PO; -CARV-50 PO; -CARV3.12 PO; +CARV6.252 PO; -CEFD300C3 PO; -DOCU-28 PO; -FLO0.4C PO; -FLUT16SP10; -FLUT1BLS3; -LANTUS SQ; +MULT1TAB74 PO; +NITR100C PO; -PANT-47 PO; -PANT40SU2 PO; -POTA10TA19 PO; -POTA40LI16 PO; +PRED2.5T4 PO
[2019-01-10] MEDS ORDERED: normal saline 1000ML IV soln IVB ONE (04:45)
[2019-01-10 05:30] LABS: ALANINE AMINOTRANSFERASE 153 U/L (12-78); ALBUMIN 2.5 G/DL (3.4-5.0); ALBUMIN/GLOBULIN RATIO 0.9 (1.1-1.5); ALKALINE PHOSPHATASE 109 IU/L (46-116); ANION GAP 8 (8-16); ASPARTATE AMINO TRANSFERASE 140 U/L (10-37); BLOOD UREA NITROGEN 65 MG/DL (7-18); BUN/CREATININE RATIO 25.3 (6.6-38.0); CALCIUM 8.3 MG/DL (8.5-10.1); CHLORIDE 97 MMOL/L (99-107); CREATININE 2.57 MG/DL (0.40-0.90); GLUCOSE 126 MG/DL (70-104); MAGNESIUM 2.3 MG/DL (1.5-2.4); POTASSIUM 3.1 MMOL/L (3.5-5.1); SODIUM 136 MMOL/L (135-145); TOTAL CARBON DIOXIDE 30.6 MMOL/L (24-32); TOTAL PROTEIN 5.4 G/DL (6.4-8.2); eGFR 18 ML/MIN
[2019-01-10 05:31] LABS: PARTIAL THROMBOPLASTIN TIME 28 SECONDS (22-32)
[2019-01-10 05:34] LABS: CLARITY,URINE CLEAR (Clear); COLOR,URINE STRAW (Yellow); GLUCOSE, URINE NEGATIVE (Neg); KETONES,URINE NEGATIVE (Neg); LEUKOCYTE ESTERASE ,URINE SMALL (Neg); NITRITES, URINE NEGATIVE (Neg); OCCULT BLOOD,URINE NEGATIVE (Neg); PROTEIN,URINE NEGATIVE (Neg)
[2019-01-10 05:35] LABS: BASOPHILS % (AUTO) 0.9 % (0-1); EOSINOPHILS # (AUTO) 0.1 X10'3 (0-0.9); EOSINOPHILS % (AUTO) 2.3 % (0-6); HEMATOCRIT 27.5 % (35.0-45.0); HEMOGLOBIN 9.2 g/dl (12.0-16.0); LYMPHOCYTES # (AUTO) 0.8 X10'3 (1.1-4.8); LYMPHOCYTES % (AUTO) 16.9 % (21-51); MEAN CORPUSCULAR HEMOGLOBIN 34.3 PG (27.0-31.0); MEAN CORPUSCULAR HGB CONC 33.4 g/dL (33.0-36.5); MEAN CORPUSCULAR VOLUME 102.7 FL (78-98); MEAN PLATELET VOLUME 8.9 FL (7.4-10.4); MONOCYTES # (AUTO) 0.7 X10'3 (0-0.9); MONOCYTES % (AUTO) 15.4 % (2-12); NEUTROPHILS # (AUTO) 2.9 X10'3 (1.8-7.7); NEUTROPHILS % (AUTO) 64.5 % (42-75); PLATELET COUNT 61 X10'3 (140-440); RED BLOOD COUNT 2.68 X10'6 (4.20-5.60); RED CELL DISTRIBUTION WIDTH 18.8 % (11.5-14.5); WHITE BLOOD COUNT 4.5 X10'3 (4.5-11.0)
[2019-01-10 05:41] LABS: UA COLLECTION TYPE STRAIGHT CATH
[2019-01-10 05:49] LABS: BACTERIA,URINE FEW /HPF (Neg); RBC,URINE NONE SEEN /HPF (0-2); SQUAMOUS EPITHELIAL CELL,UR FEW /LPF (FEW)
[2019-01-10 05:50] LABS: MUCUS STRANDS NONE SEEN /LPF (Neg); TRANSITIONAL EPI CELLS,URINE FEW /HPF
[2019-01-10] MEDS ORDERED: AZIT-63 PO (06:17)
--- NOTE | 2019-01-10 06:45 | NUR ---
SON RETURNED WITH SHOES FOR PATIENT DISCHARGE.
--- NOTE | 2019-01-10 07:15 | NUR ---
UP TO BSC TO URINATE. PREPARING FOR DISCHARGE WITH SON.
[2019-01-10 07:45] VITALS: BP 145/75
== END 2019-01-10 07:49 | disposition home or self-care (01) ==
LOC: ER 04:02
DX: R53.1 Weakness (principal); R05 Cough; I25.10 Atherosclerotic heart disease of native coronary artery without angina pectoris; I12.9 Hypertensive chronic kidney disease with stage 1 through stage 4 chronic kidney disease, or unspecified chronic kidney disease; E11.22 Type 2 diabetes mellitus with diabetic chronic kidney disease; N18.9 Chronic kidney disease, unspecified; I25.2 Old myocardial infarction; J44.9 Chronic obstructive pulmonary disease, unspecified; K21.9 Gastro-esophageal reflux disease without esophagitis; M10.9 Gout, unspecified; Z86.73 Personal history of transient ischemic attack (TIA), and cerebral infarction without residual deficits; Z98.61 Coronary angioplasty status; Z90.49 Acquired absence of other specified parts of digestive tract; Z95.1 Presence of aortocoronary bypass graft; Z98.890 Other specified postprocedural states; Z88.5 Allergy status to narcotic agent; Z88.1 Allergy status to other antibiotic agents; Z79.2 Long term (current) use of antibiotics; Z79.899 Other long term (current) drug therapy
CPT/HCPCS: 36415; 71045; 80053; 81001; 83735; 84484; 85025; 85610; 85730; 87088; 93005; 99284; J7040; P9612; 87077; 87186

== ENCOUNTER 2019-02-25 11:19 | Inpatient (IN) | payer MEDICARE ==
[~2019-02-25] VITALS: Ht 162.6 cm; Wt 60.0 kg
[2019-02-25] VITALS (8 sets, daily range): BP systolic 119–154; BP diastolic 52–93
[2019-02-25 12:02] LABS: BASOPHILS % (AUTO) 0.9 % (0-1); EOSINOPHILS # (AUTO) 0.1 X10'3 (0-0.9); EOSINOPHILS % (AUTO) 4.1 % (0-6); LYMPHOCYTES # (AUTO) 0.5 X10'3 (1.1-4.8); LYMPHOCYTES % (AUTO) 20.1 % (21-51); MEAN CORPUSCULAR HEMOGLOBIN 29.9 PG (27.0-31.0); MEAN CORPUSCULAR VOLUME 96.5 FL (78-98); MEAN PLATELET VOLUME 8.5 FL (7.4-10.4); MONOCYTES # (AUTO) 0.4 X10'3 (0-0.9); NEUTROPHILS # (AUTO) 1.5 X10'3 (1.8-7.7); NEUTROPHILS % (AUTO) 58.9 % (42-75); PLATELET COUNT 72 X10'3 (140-440); RED CELL DISTRIBUTION WIDTH 18.4 % (11.5-14.5); WHITE BLOOD COUNT 2.5 X10'3 (4.5-11.0)
[2019-02-25 12:10] LABS: HEMATOCRIT 15.4 % (35.0-45.0); HEMOGLOBIN 4.8 g/dl (12.0-16.0)
[2019-02-25 12:14] LABS: PARTIAL THROMBOPLASTIN TIME 24 SECONDS (22-32)
[2019-02-25 12:21] LABS: CLARITY,URINE CLEAR (Clear); COLOR,URINE YELLOW (Yellow); GLUCOSE, URINE NEGATIVE (Neg); KETONES,URINE NEGATIVE (Neg); LEUKOCYTE ESTERASE ,URINE MODERATE (Neg); NITRITES, URINE NEGATIVE (Neg); OCCULT BLOOD,URINE NEGATIVE (Neg); PH,URINE 6.5 (4.8-8.0); PROTEIN,URINE NEGATIVE (Neg)
[2019-02-25 12:25] LABS: UA COLLECTION TYPE STRAIGHT CATH
[2019-02-25 12:29] LABS: ALANINE AMINOTRANSFERASE 66 U/L (12-78); ALBUMIN 2.3 G/DL (3.4-5.0); ALBUMIN/GLOBULIN RATIO 0.8 (1.1-1.5); ALKALINE PHOSPHATASE 58 IU/L (46-116); ANION GAP 7 (8-16); ASPARTATE AMINO TRANSFERASE 66 U/L (10-37); BILIRUBIN,TOTAL 0.6 MG/DL (0.1-1.0); BLOOD UREA NITROGEN 93 MG/DL (7-18); BUN/CREATININE RATIO 28.7 (6.6-38.0); CALCIUM 8.2 MG/DL (8.5-10.1); CHLORIDE 102 MMOL/L (99-107); CREATININE 3.24 MG/DL (0.40-0.90); GLUCOSE 142 MG/DL (70-104); POTASSIUM 3.1 MMOL/L (3.5-5.1); SODIUM 139 MMOL/L (135-145); TOTAL CARBON DIOXIDE 29.6 MMOL/L (24-32); TOTAL PROTEIN 5.3 G/DL (6.4-8.2); eGFR 13 ML/MIN
[2019-02-25 12:31] LABS: SQUAMOUS EPITHELIAL CELL,UR FEW /LPF (FEW); WBC,URINE 50-100 /HPF (0-4)
[2019-02-25 12:32] LABS: WBC CLUMPS,URINE MANY /HPF (NEGATIVE)
[2019-02-25 12:34] LABS: TOTAL CELLS COUNTED 100
[2019-02-25 12:38] LABS: PLATELET ESTIMATE DECREASED
[2019-02-25 12:39] LABS: BACTERIA,URINE FEW /HPF (Neg); RBC,URINE 0-2 /HPF (0-2)
[2019-02-25 12:39] LABS: ANISOCYTOSIS 2+; HYPOCHROMASIA 1+; POLYCHROMASIA 1+
--- NOTE | 2019-02-25 12:39 | NUR ---
PICC NURSE AT BEDSIDE FOR IV PLACEMENT
--- NOTE | 2019-02-25 12:58 | NUR ---
GOT CALL FROM [facility] THEY HAVE QUES REGARDING PT RECENT BLD TRANSFUSION ASKED THE FAMILY MEMBER PER THEM SHE HAS NOT RECEVIED BLD TRANSFUSION IN 2-3 YRS.DR BEE AT BEDSIDE ,PICC LINE NURSE AT BEDSIDE WORKING ON LINE FOR PT.
[2019-02-25] MEDS ORDERED: pantoprazole IV 80 MG in normal saline 100ml IV soln 100 ML IV ONE (13:30)
[2019-02-25] MEDS ORDERED: CefTRIAXone/D5W-Rocephin 1gm 50 ML IV ONE (13:30)
[2019-02-25] MEDS: pantoprazole 40MG/NS 100ML BAG 100 ML IV SCH ×3 (13:53→21:51)
[2019-02-25] MEDS ORDERED: magnesium 4gm in 100ml NS 100 ML IV PRN (14:55)
[2019-02-25] MEDS ORDERED: potassium CL 10mEq/100ml bag 100 ML IV PRN ×2 (14:55)
[2019-02-25] MEDS ORDERED: potassium Cl 20 mEq SR tablet PO PRN ×2 (14:55)
[2019-02-25] MEDS ORDERED: magnesium Cl slow-release 64mg tablet PO PRN (14:55)
[2019-02-25] MEDS ORDERED: magnesium 2GM in 50ml NS 50 ML IV PRN (14:55)
--- NOTE | 2019-02-25 14:57 | NUR ---
PT SIGNED BLOOD CONSENT, UPDATED PT VS, SON IS AT BEDSIDE
[2019-02-25] MEDS ORDERED: XAL0.005OS EACHEYE (15:25)
[2019-02-25] MEDS ORDERED: ALLO100T PO (15:25)
[2019-02-25] MEDS ORDERED: FLUT1DIS4 INH (15:25)
[2019-02-25] MEDS ORDERED: FURO-149 PO (15:25)
[2019-02-25] MEDS ORDERED: POTA10TA19 PO (15:25)
[2019-02-25] MEDS ORDERED: GABA-532 PO (15:25)
[2019-02-25] MEDS ORDERED: ALBU18HF2 INH (15:25)
[2019-02-25] MEDS ORDERED: VIT1CAPS9 PO (15:25)
[2019-02-25] MEDS ORDERED: DORZ10DR19 EACHEYE (15:25)
[2019-02-25] MEDS ORDERED: MULT-955 PO (15:25)
[2019-02-25] MEDS ORDERED: CARV6.253 PO (15:25)
[2019-02-25] MEDS ORDERED: IPRA3AMP31 IH (15:25)
--- NOTE | 2019-02-25 15:56 | NUR ---
PT BLD TRANSFUSION STARTED AT 1525 VITALS CHECKED AT 1530 BP 137/59,SPO2 100% ON 2L,HR 72,R 16.PT SON AT BEDSIDE EXPLAINED THE PROCEDURE TO THE PT AND FAMILY VERIFIED INFORMATION .PT OBSERVED FOR FIRST 30 MIN TOTAL ASSESSED FOR ALLERGIC RXN FOR FIRST 15 MIN ,NO RXN NOTED ,PT TOLERATED THE INFUSION,PT VITALS STABLE SON AT BEDSIDE .CHECKED VITALS WERE STABLE .NO DISTRESS NOTED .ASSISGNED NURSE VINCE COTTRELL ABT PT .
--- NOTE | 2019-02-25 20:03 | NUR ---
NO DIFFICULTY WITH RECEIVING THE SECOND UNIT OF BLOOD FIRST 15 MIN 1:1 at bedside. Visited with patient. 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 She was healthy as a child, only pneumonia. She has asthma. She still gets pneumonia sometimes. She was told about her stomach "years ago". Her has since passed. He of alzheimers. Her son took care of him, and now takes care of her. She misses her spouse, I saw tears in her eyes when she was speaking of him. She talked about how he used to drive truck for [employer] at age 13, and how he loved to fish and gordon.
[2019-02-25] MEDS: normal saline 1000ml 1,000 ML IV SCH (21:50)
--- NOTE | 2019-02-25 23:15 | NUR ---
PT PLACED ON HOSPITAL BED FOR COMFORT
[2019-02-25 23:43] LABS: HEMATOCRIT 26.2 % (35.0-45.0); HEMOGLOBIN 8.4 g/dl (12.0-16.0); MEAN CORPUSCULAR HEMOGLOBIN 30.6 PG (27.0-31.0); MEAN CORPUSCULAR HGB CONC 32.1 g/dL (33.0-36.5); MEAN CORPUSCULAR VOLUME 95.1 FL (78-98); MEAN PLATELET VOLUME 8.5 FL (7.4-10.4); PLATELET COUNT 73 X10'3 (140-440); RED BLOOD COUNT 2.75 X10'6 (4.20-5.60); RED CELL DISTRIBUTION WIDTH 16.7 % (11.5-14.5)
[2019-02-26] MEDS: pantoprazole 40MG/NS 100ML BAG 100 ML IV SCH ×5 (03:57→18:57)
[2019-02-26 07:02] LABS: BASOPHILS # (AUTO) 0.1 X10'3 (0-0.2); BASOPHILS % (AUTO) 1.2 % (0-1); EOSINOPHILS # (AUTO) 0.1 X10'3 (0-0.9); EOSINOPHILS % (AUTO) 2.8 % (0-6); HEMATOCRIT 25.5 % (35.0-45.0); HEMOGLOBIN 8.2 g/dl (12.0-16.0); LYMPHOCYTES # (AUTO) 0.7 X10'3 (1.1-4.8); MEAN CORPUSCULAR HEMOGLOBIN 30.7 PG (27.0-31.0); MEAN CORPUSCULAR HGB CONC 32.2 g/dL (33.0-36.5); MEAN CORPUSCULAR VOLUME 95.4 FL (78-98); MEAN PLATELET VOLUME 8.1 FL (7.4-10.4); MONOCYTES # (AUTO) 0.6 X10'3 (0-0.9); NEUTROPHILS # (AUTO) 2.7 X10'3 (1.8-7.7); PLATELET COUNT 75 X10'3 (140-440); RED BLOOD COUNT 2.67 X10'6 (4.20-5.60); RED CELL DISTRIBUTION WIDTH 16.9 % (11.5-14.5); WHITE BLOOD COUNT 4.1 X10'3 (4.5-11.0)
[2019-02-26 07:15] LABS: ALBUMIN 2.2 G/DL (3.4-5.0); ANION GAP 11 (8-16); BLOOD UREA NITROGEN 81 MG/DL (7-18); BUN/CREATININE RATIO 26.7 (6.6-38.0); CALCIUM 7.8 MG/DL (8.5-10.1); CHLORIDE 107 MMOL/L (99-107); CREATININE 3.03 MG/DL (0.40-0.90); GLUCOSE 113 MG/DL (70-104); MAGNESIUM 2.6 MG/DL (1.5-2.4); POTASSIUM 3.2 MMOL/L (3.5-5.1); SODIUM 145 MMOL/L (135-145); TOTAL CARBON DIOXIDE 27.3 MMOL/L (24-32); eGFR 15 ML/MIN
--- NOTE | 2019-02-26 07:24 | NUR ---
TC FROM SONADY FOR CONDITION REPORT. INFORMED OF INPATIENT BED ASSIGNMENT. ATTEMPTED TO CALL SURGICAL UNIT TO GIVE REPORT AND NURSE WILL CALL BACK WHEN AVAILABLE.
[2019-02-26 07:47] LABS: ANISOCYTOSIS 1+; PLATELET ESTIMATE DECREASED
[2019-02-26 07:48] LABS: HYPOGRANULAR PLATELETS FEW; POLYCHROMASIA FEW
[2019-02-26 07:49] LABS: HYPOCHROMASIA 1+
[2019-02-26 07:51] LABS: STOMATOCYTES FEW
--- NOTE | 2019-02-26 07:53 | NUR ---
ATTEMPTED TO CALL REPORT TO SURGICAL UNIT. NURSE IS BUSY AND WILL CALL BACK WHEN SHE IS ABLE.
[2019-02-26 08:00] VITALS: BP 114/57
[2019-02-26] MEDS: K and/or MAG REPLACEMENT MC SCH (08:00)
[2019-02-26] MEDS ORDERED: levoFLOXACIN-Levaquin 500mg/D5 100 ML IV SCH (08:00)
[2019-02-26 08:38] LABS: SMUDGE CELLS FEW; TOTAL CELLS COUNTED 100
[2019-02-26] MEDS ORDERED: POTASSIUM BICARB 20meq eff tab 20 MEQ TABLET.EFF PO PRN (10:10)
[2019-02-26] MEDS: POTASSIUM BICARB 20meq eff tab 20 MEQ TABLET.EFF PO PRN ×2 (10:14→15:36)
[2019-02-26] MEDS: normal saline 1000ml 1,000 ML IV SCH ×2 (10:52→14:05)
[2019-02-26 11:00] VITALS: BP 155/70
[2019-02-26] MEDS ORDERED: albuterol 2.5 MG/3 ML nebule NEB PRN (18:10)
--- NOTE | 2019-02-26 18:33 | NUR ---
Received report from Liv COBIAN pt is awake and alert visitor at bedside
[2019-02-26 19:00] VITALS: BP 156/56
--- NOTE | 2019-02-26 19:03 | NUR ---
Problems reprioritized. Patient report given, questions answered & plan of care reviewed with TONY COBIAN.
[2019-02-26] MEDS: albuterol 2.5 MG/3 ML nebule NEB SCH (20:12)
[2019-02-26] MEDS: budesonide 0.5mg/2ml UD nebule IH SCH (20:12)
[2019-02-26] MEDS: latanoprost 0.005% 2.5ml ophthalmic drops EACHEYE SCH (20:18)
[2019-02-26] MEDS: dorzolamide 2% ophthalmic drops 10ml EACHEYE SCH (20:18)
[2019-02-26] MEDS: carvedilol 6.25mg tablet PO SCH (20:18)
[2019-02-26] MEDS: allopurinol 100mg tablet PO SCH (20:18)
[2019-02-26] MEDS: nystatin 15 GM powder TP SCH (20:18)
[2019-02-26] MEDS: gabapentin 300mg capsule PO SCH (20:19)
[2019-02-26] MEDS: acetaminophen 325mg tablet PO PRN (22:36)
[2019-02-27 00:04] VITALS: BP 150/61
[2019-02-27] MEDS: pantoprazole 40MG/NS 100ML BAG 100 ML IV SCH ×5 (00:10→20:09)
[2019-02-27] MEDS: albuterol 2.5 MG/3 ML nebule NEB SCH ×4 (02:09→20:32)
[2019-02-27 05:18] LABS: BASOPHILS % (AUTO) 0.7 % (0-1); EOSINOPHILS # (AUTO) 0.1 X10'3 (0-0.9); EOSINOPHILS % (AUTO) 3.6 % (0-6); HEMATOCRIT 24.4 % (35.0-45.0); HEMOGLOBIN 7.9 g/dl (12.0-16.0); LYMPHOCYTES # (AUTO) 0.8 X10'3 (1.1-4.8); LYMPHOCYTES % (AUTO) 23.7 % (21-51); MEAN CORPUSCULAR HEMOGLOBIN 30.8 PG (27.0-31.0); MEAN CORPUSCULAR HGB CONC 32.5 g/dL (33.0-36.5); MEAN CORPUSCULAR VOLUME 94.7 FL (78-98); MEAN PLATELET VOLUME 8.5 FL (7.4-10.4); MONOCYTES # (AUTO) 0.6 X10'3 (0-0.9); MONOCYTES % (AUTO) 17.2 % (2-12); NEUTROPHILS # (AUTO) 1.9 X10'3 (1.8-7.7); NEUTROPHILS % (AUTO) 54.8 % (42-75); PLATELET COUNT 73 X10'3 (140-440); RED BLOOD COUNT 2.58 X10'6 (4.20-5.60); RED CELL DISTRIBUTION WIDTH 16.8 % (11.5-14.5); WHITE BLOOD COUNT 3.4 X10'3 (4.5-11.0)
[2019-02-27 05:37] LABS: ALBUMIN 2.1 G/DL (3.4-5.0); ANION GAP 9 (8-16); BLOOD UREA NITROGEN 74 MG/DL (7-18); BUN/CREATININE RATIO 24.3 (6.6-38.0); CALCIUM 7.5 MG/DL (8.5-10.1); CHLORIDE 105 MMOL/L (99-107); CREATININE 3.04 MG/DL (0.40-0.90); GLUCOSE 117 MG/DL (70-104); MAGNESIUM 2.4 MG/DL (1.5-2.4); POTASSIUM 3.5 MMOL/L (3.5-5.1); SODIUM 141 MMOL/L (135-145); TOTAL CARBON DIOXIDE 27.3 MMOL/L (24-32); eGFR 14 ML/MIN
--- NOTE | 2019-02-27 06:25 | NUR ---
Gave report to Mandy COBIAN pt is resting on O2 call light and items of freq use within reach, protonix drip running
[2019-02-27 07:00] VITALS: BP 145/59
[2019-02-27 07:02] LABS: ANISOCYTOSIS 2+; PLATELET ESTIMATE DECREASED; TOTAL CELLS COUNTED 100
[2019-02-27 07:03] LABS: POLYCHROMASIA FEW
[2019-02-27] MEDS: K and/or MAG REPLACEMENT MC SCH (08:00)
[2019-02-27] MEDS: multivitamins, therapeutics tablet PO SCH (08:06)
[2019-02-27] MEDS: allopurinol 100mg tablet PO SCH (08:06)
[2019-02-27] MEDS: carvedilol 6.25mg tablet PO SCH ×2 (08:07→20:09)
[2019-02-27] MEDS: gabapentin 300mg capsule PO SCH (08:07)
[2019-02-27] MEDS: levoFLOXACIN-Levaquin 250mg/D5 50 ML IV SCH (08:07)
[2019-02-27] MEDS: dorzolamide 2% ophthalmic drops 10ml EACHEYE SCH ×2 (08:08→20:09)
[2019-02-27] MEDS: nystatin 15 GM powder TP SCH ×3 (08:09→21:42)
[2019-02-27] MEDS: budesonide 0.5mg/2ml UD nebule IH SCH ×2 (08:18→20:32)
[2019-02-27 11:00] VITALS: BP 149/71
[2019-02-27] MEDS ORDERED: CIPR-230 PO (12:04)
[2019-02-27 17:00] VITALS: BP 176/60
--- NOTE | 2019-02-27 18:23 | NUR ---
Received report from Mandy COBIAN pt is awake and alert son is at bedside, wanting to know as to why pts lasix was not continued, spoke iwth Dr. silva and Dr. silva didn't want to continue lasix due to pt being dehydrated. Explained to pt and son.
[2019-02-27 19:00] VITALS: BP 176/60
[2019-02-27] MEDS: latanoprost 0.005% 2.5ml ophthalmic drops EACHEYE SCH (20:09)
[2019-02-28 00:04] VITALS: BP 106/70
[2019-02-28] MEDS: pantoprazole 40MG/NS 100ML BAG 100 ML IV SCH ×3 (01:19→11:59)
[2019-02-28] MEDS: albuterol 2.5 MG/3 ML nebule NEB SCH ×4 (02:00→21:06)
[2019-02-28 04:39] LABS: BASOPHILS % (AUTO) 0.9 % (0-1); EOSINOPHILS # (AUTO) 0.2 X10'3 (0-0.9); EOSINOPHILS % (AUTO) 5.3 % (0-6); HEMATOCRIT 23.2 % (35.0-45.0); HEMOGLOBIN 7.6 g/dl (12.0-16.0); LYMPHOCYTES # (AUTO) 0.8 X10'3 (1.1-4.8); MEAN CORPUSCULAR HEMOGLOBIN 30.8 PG (27.0-31.0); MEAN CORPUSCULAR HGB CONC 32.5 g/dL (33.0-36.5); MEAN CORPUSCULAR VOLUME 94.6 FL (78-98); MEAN PLATELET VOLUME 7.9 FL (7.4-10.4); MONOCYTES # (AUTO) 0.5 X10'3 (0-0.9); MONOCYTES % (AUTO) 16.6 % (2-12); NEUTROPHILS # (AUTO) 1.7 X10'3 (1.8-7.7); NEUTROPHILS % (AUTO) 51.2 % (42-75); PLATELET COUNT 71 X10'3 (140-440); RED BLOOD COUNT 2.46 X10'6 (4.20-5.60); WHITE BLOOD COUNT 3.2 X10'3 (4.5-11.0)
[2019-02-28 04:46] LABS: ALBUMIN 2.1 G/DL (3.4-5.0); ANION GAP 6 (8-16); BLOOD UREA NITROGEN 66 MG/DL (7-18); BUN/CREATININE RATIO 22.4 (6.6-38.0); CALCIUM 7.8 MG/DL (8.5-10.1); CHLORIDE 105 MMOL/L (99-107); CREATININE 2.95 MG/DL (0.40-0.90); GLUCOSE 107 MG/DL (70-104); MAGNESIUM 2.3 MG/DL (1.5-2.4); POTASSIUM 3.3 MMOL/L (3.5-5.1); SODIUM 137 MMOL/L (135-145); TOTAL CARBON DIOXIDE 25.9 MMOL/L (24-32); eGFR 15 ML/MIN
[2019-02-28 05:25] LABS: ANISOCYTOSIS 1+; PLATELET ESTIMATE DECREASED; TOTAL CELLS COUNTED 100
[2019-02-28 05:26] LABS: POLYCHROMASIA FEW
--- NOTE | 2019-02-28 06:15 | NUR ---
Gave report to Melissa COBIAN pt is awake and alert on 1L of O2 via NC in no apparent distress, protonix drip running, call light and items of freq use within reach.
--- NOTE | 2019-02-28 06:34 | NUR ---
Patient in room JACKELIN 360. I have received report from MANGO Olivas and had the opportunity to ask questions and assume patient care.
[2019-02-28 07:00] VITALS: BP 142/61
[2019-02-28] MEDS: K and/or MAG REPLACEMENT MC SCH (08:00)
[2019-02-28] MEDS: dorzolamide 2% ophthalmic drops 10ml EACHEYE SCH ×2 (09:11→20:10)
[2019-02-28] MEDS: POTASSIUM BICARB 20meq eff tab 20 MEQ TABLET.EFF PO PRN ×3 (09:12→17:51)
[2019-02-28] MEDS: carvedilol 6.25mg tablet PO SCH ×2 (09:13→20:11)
[2019-02-28] MEDS: levoFLOXACIN-Levaquin 250mg/D5 50 ML IV SCH (09:13)
[2019-02-28] MEDS: multivitamins, therapeutics tablet PO SCH (09:14)
[2019-02-28] MEDS: allopurinol 100mg tablet PO SCH (09:14)
[2019-02-28] MEDS: gabapentin 300mg capsule PO SCH (09:14)
[2019-02-28] MEDS: nystatin 15 GM powder TP SCH ×3 (09:15→20:11)
[2019-02-28] MEDS: budesonide 0.5mg/2ml UD nebule IH SCH ×2 (09:21→21:06)
[2019-02-28 11:00] VITALS: BP 144/57
--- NOTE | 2019-02-28 18:05 | NUR ---
Received report from Melissa COBIAN pt is awake and alert wearing 1L of O2 via NC, about to eat dinner, call light and items of freq use within reach.
--- NOTE | 2019-02-28 18:13 | NUR ---
Problems reprioritized. Patient report given, questions answered & plan of care reviewed with MANGO Olivas and MANGO Last.
--- NOTE | 2019-02-28 18:15 | NUR ---
Patient in room JACKELIN 360. I have received report from MANGO Torres and had the opportunity to ask questions and assume patient care.
[2019-02-28 19:00] VITALS: BP 154/59
[2019-02-28] MEDS ORDERED: ciprofloxacin 250mg tablet PO SCH (20:00)
[2019-02-28] MEDS: latanoprost 0.005% 2.5ml ophthalmic drops EACHEYE SCH (20:11)
[2019-02-28] MEDS: acetaminophen 325mg tablet PO PRN (23:54)
[2019-03-01] VITALS: BP 153/68
[2019-03-01] MEDS: albuterol 2.5 MG/3 ML nebule NEB SCH ×2 (02:57→09:32)
[2019-03-01 03:53] LABS: EOSINOPHILS # (AUTO) 0.2 X10'3 (0-0.9); EOSINOPHILS % (AUTO) 6.1 % (0-6); HEMATOCRIT 22.1 % (35.0-45.0); HEMOGLOBIN 7.2 g/dl (12.0-16.0); LYMPHOCYTES # (AUTO) 0.7 X10'3 (1.1-4.8); LYMPHOCYTES % (AUTO) 25.7 % (21-51); MEAN CORPUSCULAR HEMOGLOBIN 30.5 PG (27.0-31.0); MEAN CORPUSCULAR HGB CONC 32.7 g/dL (33.0-36.5); MEAN CORPUSCULAR VOLUME 93.2 FL (78-98); MEAN PLATELET VOLUME 7.8 FL (7.4-10.4); MONOCYTES # (AUTO) 0.5 X10'3 (0-0.9); MONOCYTES % (AUTO) 16.9 % (2-12); NEUTROPHILS # (AUTO) 1.4 X10'3 (1.8-7.7); NEUTROPHILS % (AUTO) 50.3 % (42-75); PLATELET COUNT 68 X10'3 (140-440); RED BLOOD COUNT 2.37 X10'6 (4.20-5.60); RED CELL DISTRIBUTION WIDTH 16.6 % (11.5-14.5); WHITE BLOOD COUNT 2.7 X10'3 (4.5-11.0)
[2019-03-01 04:04] LABS: ALBUMIN 2.1 G/DL (3.4-5.0); ANION GAP 8 (8-16); BLOOD UREA NITROGEN 64 MG/DL (7-18); BUN/CREATININE RATIO 22.6 (6.6-38.0); CALCIUM 7.7 MG/DL (8.5-10.1); CHLORIDE 103 MMOL/L (99-107); CREATININE 2.83 MG/DL (0.40-0.90); GLUCOSE 104 MG/DL (70-104); MAGNESIUM 2.5 MG/DL (1.5-2.4); POTASSIUM 3.7 MMOL/L (3.5-5.1); SODIUM 137 MMOL/L (135-145); TOTAL CARBON DIOXIDE 26.1 MMOL/L (24-32); eGFR 16 ML/MIN
[2019-03-01 04:34] LABS: ANISOCYTOSIS 1+; PLATELET ESTIMATE DECREASED; TOTAL CELLS COUNTED 100
[2019-03-01 04:35] LABS: HYPOCHROMASIA 1+; POLYCHROMASIA FEW
--- NOTE | 2019-03-01 06:33 | NUR ---
Problems reprioritized. Patient report given, questions answered & plan of care reviewed with Leticia COBIAN.
--- NOTE | 2019-03-01 06:34 | NUR ---
Problems reprioritized. Patient report given, questions answered & plan of care reviewed with MANGO Kelly.
[2019-03-01] MEDS ORDERED: pantoprazole 40mg Tablet.DR PO SCH (07:30)
[2019-03-01] MEDS: K and/or MAG REPLACEMENT MC SCH (08:00)
[2019-03-01] MEDS ORDERED: ciprofloxacin 250mg tablet PO SCH (08:00)
[2019-03-01 08:28] VITALS: BP 146/56
[2019-03-01] MEDS: allopurinol 100mg tablet PO SCH (09:02)
[2019-03-01] MEDS: gabapentin 300mg capsule PO SCH (09:02)
[2019-03-01] MEDS: carvedilol 6.25mg tablet PO SCH (09:02)
[2019-03-01] MEDS: multivitamins, therapeutics tablet PO SCH (09:03)
[2019-03-01] MEDS: dorzolamide 2% ophthalmic drops 10ml EACHEYE SCH (09:04)
[2019-03-01] MEDS: budesonide 0.5mg/2ml UD nebule IH SCH (09:32)
[2019-03-01] MEDS: nystatin 15 GM powder TP SCH (12:04)
--- NOTE | 2019-03-01 13:08 | NUR ---
Patient discharged with [facility]. IVs dc'd, patient tolerated well. Family was at bedside. Depend placed at request of family and patient do to incont bladder. Patient had lunch. All belongings sent with patient, Report called to [facility]. Patient is a sit to stand, fragile skin with reddening and bruising, No anticoag do to GI bleeds, Last BM 02/28/20, 2U PRBC given this admit, O2 dependent at home 1-2 L, HH diet with patient eating 50% meals was reported to nursing staff.
--- NOTE | 2019-03-01 13:16 | NUR ---
All belongings with patient and patients son. Addendum: 03/01/19 at 1316 by Leticia Parra RN Amended: Links added.
== END 2019-03-01 13:00 | DRG 682 ==
LOC: ER 11:20 → MERGE 14:52 → ED HOLD 14:52 → SUR 3N 02-26 08:41 → CMPBEDREQ 03-01 08:40
PROVIDERS: ADMIT Internal Medicine; ATTEND Internal Medicine
PROC: 30233N1 Transfusion of Nonautologous Red Blood Cells into Peripheral Vein, Percutaneous Approach (ICD-10-PCS; principal; 2019-02-25)
DX: N17.9 Acute kidney failure, unspecified (principal); G93.41 Metabolic encephalopathy; D61.818 Other pancytopenia; N30.00 Acute cystitis without hematuria; K92.2 Gastrointestinal hemorrhage, unspecified; B96.5 Pseudomonas (aeruginosa) (mallei) (pseudomallei) as the cause of diseases classified elsewhere; D50.0 Iron deficiency anemia secondary to blood loss (chronic); E86.9 Volume depletion, unspecified; I12.9 Hypertensive chronic kidney disease with stage 1 through stage 4 chronic kidney disease, or unspecified chronic kidney disease; J45.909 Unspecified asthma, uncomplicated; M10.9 Gout, unspecified; N18.9 Chronic kidney disease, unspecified; Z66 Do not resuscitate; Z79.899 Other long term (current) drug therapy; Z86.011 Personal history of benign neoplasm of the brain; Z88.1 Allergy status to other antibiotic agents; Z88.5 Allergy status to narcotic agent
CPT/HCPCS: 36415; 71045; 80048; 80053; 81001; 83605; 83735; 84145; 84484; 85025; 85027; 85610; 85730; 86870; 86885; 86900; 86901; 86902; 86905; 86922; 87040; 87077; 87081; 87088; 87186; 93005; 94640; 94760; 96365; 97116; 97161; 97530; 97535; 99291; C9113; G0378; J0696; J1956; J7030; J7626; P9016

== ENCOUNTER 2019-05-19 05:39 | Day surgery (SDC) | payer MEDICARE ==
[~2019-05-19] VITALS: Ht 162.6 cm; Wt 68.2 kg
[~2019-05-19 05:39] MED LIST changes: +ALBU18HF2 INH; +CARV6.253 PO; +DORZ10DR19 EACHEYE; +FLUT1DIS4 INH; +MULT-955 PO; +VIT1CAPS9 PO
[2019-05-19 06:05] VITALS: BP 191/91
[2019-05-19] MEDS ORDERED: PRED5TAB PO (06:52)
[2019-05-19] MEDS ORDERED: PANT40TA4 PO (06:53)
[2019-05-19] MEDS ORDERED: FERR325T28 PO (06:57)
[2019-05-19] MEDS ORDERED: BUDE0.5A11 NEB (06:57)
[2019-05-19] MEDS ORDERED: INUL2TAB5 PO (06:59)
[2019-05-19] MEDS ORDERED: POTA25TA8 PO (07:00)
[2019-05-19] MEDS ORDERED: MIDAZolam 5mg/5ml vial ONE (07:01)
[2019-05-19] MEDS ORDERED: LIDOcaine Viscous 15ml cup ONE (07:01)
[2019-05-19] MEDS ORDERED: fentaNYL/PF 50MCG/1 ML 2ML syringe ONE (07:01)
[2019-05-19] MEDS ORDERED: FOLI200T11 PO (07:01)
[2019-05-19] MEDS ORDERED: ACET-2119 PO (07:02)
[2019-05-19] MEDS ORDERED: HYDR-3965 PO (07:03)
[2019-05-19 08:33] VITALS: BP 178/88
[2019-05-19 08:42] VITALS: BP 156/83
[2019-05-19 08:52] VITALS: BP 155/76
[2019-05-19 09:02] VITALS: BP 144/71
== END 2019-05-19 09:28 | disposition home or self-care (01) ==
LOC: GI LAB 05:39
PROVIDERS: ATTEND Internal Medicine Gastroenterology
DX: D50.0 Iron deficiency anemia secondary to blood loss (chronic) (principal); K31.811 Angiodysplasia of stomach and duodenum with bleeding; K31.7 Polyp of stomach and duodenum; Z79.899 Other long term (current) drug therapy
CPT/HCPCS: 43255; 43270; 99153; G0500; J2250; J3010; J7040; 43227; 99152; A4620